=== PATIENT | female | born 1930 | race Caucasian/White ===

== ENCOUNTER 2017-03-28 02:03 | Inpatient (IN) ==
--- NOTE | 2017-03-28 05:01 | Emergency Department Note ---
START Narrative - START START: I examined this patient and my medical decision-making was reviewed with the Resident Physician. I agree with the documented findings, disposition and treatment plan as described except to the extent set forth below. 86-year-old female presented for a mechanical fall. She was complaining of left knee and leg pain. X-rays were negative. However, she had some abnormalities on her pelvis x-ray. I have added on a CT pelvis to evaluate for pubic symphysis type fracture. She is resting comfortably in the room. If negative, patient will likely be able to be discharged home if she can ambulate.
[2017-03-28] MEDS ORDERED: Ondansetron 4 MG/2 ML VIAL IVP ONE (05:48)
[2017-03-28] MEDS ORDERED: *HR* Morphine 2 MG/ML SYRINGE IVP ONE (05:48)
--- NOTE | 2017-03-28 05:52 | Emergency Department Note ---
Disposition Clinical Impression: Pubic ramus fracture Qualifiers: Encounter type: initial encounter Fracture type: closed Laterality: right Qualified Code(s): S32.591A - Other specified fracture of right pubis, initial encounter for closed fracture Fall Qualifiers: Encounter type: initial encounter Qualified Code(s): W19.XXXA - Unspecified fall, initial encounter Disposition: Admitted As Inpatient Condition: Good Referrals: Jessica Brewer MD [Primary Care Provider] - General Adult HPI - General Chief complaint: ED Extremity Injury, Lower Stated complaint: fall. no loc Time Seen by Provider: 03/28/17 02:36 Source: patient Limitations: no limitations Nursing Notes Reviewed: Yes Vital Signs Reviewed: Yes - History of Present Illness HPI Narrative: 86-year-old female who had a mechanical fall just prior to arrival. She reports she was unable to ambulate after the fall. She reports that her feet got tangled up and she fell onto her right side. She denies hitting her head. She denies any head or neck pain. She denies losing consciousness. She states that she initially just fell onto her right knee and then onto the right hip. Her complaints are pain of the right hip and right knee and right ankle. She does take Xarelto for atrial fibrillation. Her other medical problems include diabetes, hypertension. Radiation: non-radiation Pain Severity: moderate Pain Scale: 7 Improves with: nothing Worsens with: movement Associated symptoms: Reports: denies other symptoms Treatments Prior to Arrival: none - Related Data Home Medications Medication Instructions Recorded Confirmed Alendronate Sodium 70 mg PO QWEEK MDD wednesday10/22/15 10/22/15 Amlodipine Besylate 5 mg PO DAILY 10/22/15 10/22/15 Aspirin [Lo-Dose Aspirin EC] 81 mg PO DAILY 10/22/15 10/22/15 Calcitriol [Rocaltrol] 0.25 mg PO DAILY 10/22/15 10/22/15 Ergocalciferol (VITAMIN D2) 50,000 unit PO QWEEK MDD wednesday10/22/15 10/22/15 [Vitamin D2 (50,000 UNIT)] Furosemide [Lasix] 20 mg PO BID PRN 10/22/15 10/22/15 Losartan Potassium [Cozaar] 50 mg PO DAILY 10/22/15 10/22/15 Metoprolol [Lopressor] 50 mg PO BID 10/22/15 10/22/15 Montelukast [Singulair] 10 mg PO DAILY 10/22/15 10/22/15 Pantoprazole Sodium [Protonix] 40 mg PO DAILY 10/22/15 10/22/15 Potassium Chloride [K-Tab ER] 10 meq PO BID 10/22/15 10/22/15 Rivaroxaban [Xarelto] 20 mg PO DAILY 10/22/15 10/22/15 Simvastatin [Zocor] 10 mg PO DAILY 10/22/15 10/22/15 Sucralfate [Carafate] 1 gm PO BID 10/22/15 10/22/15 Allergies Allergy/AdvReac Type Severity Reaction Status Date / Time Penicillins Allergy Hives Verified 06/28/15 14:53 loratadine AdvReac See Verified 06/28/15 14:53 Comments sulfamethoxazole AdvReac See Verified 06/28/15 14:53 [From Bactrim] Comments trimethoprim [From Bactrim] AdvReac See Verified 06/28/15 14:53 Comments All systems ED: reviewed and negative except as stated. Constitutional: Denies: fever Cardiovascular: Denies: chest pain Respiratory: Denies: cough Gastrointestinal: Denies: abdominal pain Integumentary: Denies: rash Past Medical History - Past Medical History Medical history: Reports: arthritis, atrial fibrillation, CVA, diabetes, fibromyalgia, GERD, hyperlipidemia, hypertension, osteoporosis, renal disease, TIA, other Surgical history: Reports: hysterectomy, ALISON/BSO Psychiatric history: Reports: no psych history, other - Social History Smoking Status: Never smoker Smokeless Tobacco Status: No Alcohol use: Reports: none Drug use: Reports: none Physical Exam - General Limitations: no limitations General appearance: alert, in no apparent distress - Head Head exam: atraumatic - Eye Eye exam: Present: normal appearance, PERRL - ENT ENT exam: normal exam, normal oropharynx - Neck Neck exam: Present: normal inspection - Chest Chest inspection: Present: normal inspection - Respiratory Respiratory exam: Present: normal lung sounds bilaterally. Absent: respiratory distress - Cardiovascular Cardiovascular exam: Present: regular rate, normal rhythm - Abdominal Exam Abdominal exam: Present: soft, Non-Tender - Extremities Exam Extremities exam: Present: other (No bruising noted. Tenderness to palpation of the right knee and right hip. N/V intact distally.) - Neurological Exam Neurological exam: Present: alert, oriented X3 - Psychiatric Psychiatric exam: Present: normal affect, normal mood - Skin Skin exam: Present: warm, dry Course Course Narrative: CT shows a right-sided rami fracture. I will admit her for pain control and for orthopedic consultation. I have spoken with Dr. Fernandez who has agreed to see the patient. Vital Signs Temperature 97.8 F 03/28/17 02:05 Pulse Rate 57 03/28/17 02:05 Respiratory Rate 16 03/28/17 02:05 Blood Pressure 100/64 03/28/17 02:05 O2 Sat by Pulse Oximetry 84 03/28/17 02:05 Temperature 97.8 F 03/28/17 02:05 Pulse Rate 95 03/28/17 03:50 Respiratory Rate 18 03/28/17 03:50 Blood Pressure 102/54 03/28/17 03:50 O2 Sat by Pulse Oximetry 95 03/28/17 03:50 Oxygen Delivery Oxygen Delivery Nasal Cannula Medical Decision Making - Radiology Data Radiology results reviewed: Yes I reviewed the patient's radiology results.
[2017-03-28] MEDS ORDERED: 0.9 % Sodium Chloride 1,000 ML IVC ONE (06:00)
[2017-03-28] MEDS ORDERED: 0.9 % Sodium Chloride 1,000 ML ONE (06:01)
[2017-03-28 06:41] LABS: Basophils # 0.1 K/mcL (0.0-0.2); Basophils % 0.3 %; Eosinophils % 0.1 %; Hematocrit 36.4 % (35.3-44.9); Hemoglobin 11.8 g/dL (11.5-15.4); Immature Granulocytes % 0.7 % (0-4); Immature Platelets 5.8 % (1.1-6.1); Lymphocytes % 5.4 %; Mean Corpuscular HGB Conc 32.4 g/dL (31.6-35.5); Mean Corpuscular Hemoglobin 33.6 pg (28.0-33.3); Mean Corpuscular Volume 103.7 fL (83.0-100.0); Mean Platelet Volume 10.5 fL (9.4-12.4); Monocytes % 5.2 %; Neutrophils # 16.4 K/mcL (1.6-8.9); Platelet Count 207 K/mcL (140-400); Red Blood Count 3.51 M/mcL (3.82-4.97); Segmented Neutrophils % 88.3 %
[2017-03-28 06:46] LABS: INR 2.6; Prothrombin Time 28.3 Seconds (9.4-12.1)
[2017-03-28 06:53] LABS: BUN/Creatinine Ratio 21 (6-26); Blood Urea Nitrogen 22 mg/dL (7-20); Calcium 8.9 mg/dL (8.6-10.8); Carbon Dioxide 29 mEq/L (19-29); Chloride 105 mEq/L (98-109); Glucose 159 mg/dL (70-99); Osmolality,Calculated 299 (280-300); Sodium 141 mEq/L (136-145); eGFR For African Americans > 60 (> 60); eGFR For Non-African Americans 50 (> 60)
[2017-03-28] MEDS ORDERED: Ondansetron 4 MG/2 ML VIAL IVP PRN (08:45)
[2017-03-28] MEDS ORDERED: *HR* Morphine 2 MG/ML SYRINGE IVP PRN (08:45)
--- NOTE | 2017-03-28 08:50 | Internal Med History&Physical ---
Date of Encounter: 03/30/17 Time of Encounter: 08:48 Assessment and Plan (1) Paroxysmal atrial fibrillation Current visit: Yes Status: Acute Old anticoagulation for now given traumatic bleeding noted in the pelvis. (2) Pubic ramus fracture Current visit: Yes Status: Acute pelvic fracture after mechanical fall. I am concerned because of the bleeding behind symphysis pubis. She is on aspirin and xarelto. She is a poor historian will place a Lemus catheter to see if there is any suggestion of injury of bladder. Await for orthopedic input. Hold aspirins and xarelto for now. Follow H and H Qualifiers: Encounter type: initial encounter Fracture type: closed Laterality: right Qualified Code(s): S32.591A - Other specified fracture of right pubis, initial encounter for closed fracture (3) Leucocytosis Current visit: Yes Status: Acute No obvious source of infection. Maybe reactive. Check urine analysis and chest x-ray. Hydrate Qualifiers: Qualified Code(s): D72.829 - Elevated white blood cell count, unspecified (4) Hypertension Current visit: Yes Status: Acute Currently blood pressures towards low normal side. Will hold blood pressure medications except for beta blockers. Qualifiers: Qualified Code(s): I10 - Essential (primary) hypertension Internal Medicine - H&P: HPI Chief complaint: fall History of present illness: Ms. Dang is a 86 year old female with multiple medical problems presents to the emergency room today after mechanical fall. Reportedly patient was getting up to get a glass of water tripped and fell on her right side. She does not think she lost consciousness. She sustained a right pelvic fracture . She has been complaining of abdominal pain. There was notable blood behind the symphysis pubis on CT scan. She is on aspirin and Xarelto for paroxysmal atrial fibrillation. She denies any recent febrile illness. She denies any focal weakness. Past Med Surg Social Fam HX - Past Medical History Medical history: arthritis, atrial fibrillation, CVA, diabetes, fibromyalgia, GERD, hyperlipidemia, hypertension, osteoporosis, renal disease, TIA, other Psychiatric history: no psych history, other - Past Surgical History Surgical History: hysterectomy, ALISON/BSO - Social History Smoking Status: Never smoker Smokeless Tobacco Status: No Alcohol use: none Drug use: none - Family History Daughter Family Member Ethnicity: Non- Living Status: Still Living Hx Family Cardiac Disorders: Yes (Father had aortic anyurism) Hx Family Respiratory Disorders: No Hx Family Cancer: No Hx Family GI Disorders: No Hx Family Endocrine Disorder: No Hx Family Neuromuscular Disorders: No Hx Family Neurologic Disorders: No Hx Family HEENT Disorders: No Hx Family Autoimmune Disorders: No Internal Medicine - H&P: Meds Alendronate Sodium 70 mg PO QWEEK MDD wednesday10/22/15 [History] Amlodipine Besylate 5 mg PO DAILY 10/22/15 [History] Aspirin [Lo-Dose Aspirin EC] 81 mg PO DAILY 10/22/15 [History] Calcitriol [Rocaltrol] 0.25 mg PO DAILY 10/22/15 [History] Ergocalciferol (VITAMIN D2) [Vitamin D2 (50,000 UNIT)] 50,000 unit PO QWEEK MDD wednesday10/22/15 [History] Furosemide [Lasix] 20 mg PO BID PRN 10/22/15 [History] Losartan Potassium [Cozaar] 50 mg PO DAILY 10/22/15 [History] Metoprolol [Lopressor] 50 mg PO BID 10/22/15 [History] Montelukast [Singulair] 10 mg PO DAILY 10/22/15 [History] Potassium Chloride [K-Tab ER] 20 meq PO BID 10/22/15 [History] Rivaroxaban [Xarelto] 20 mg PO DAILY 10/22/15 [History] Simvastatin [Zocor] 10 mg PO DAILY 10/22/15 [History] 3 Allergy/AdvReac Type Severity Reaction Status Date / Time Penicillins Allergy Hives Verified 06/28/15 14:53 loratadine AdvReac See Verified 06/28/15 14:53 Comments sulfamethoxazole AdvReac See Verified 06/28/15 14:53 [From Bactrim] Comments trimethoprim [From Bactrim] AdvReac See Verified 06/28/15 14:53 Comments All Systems PM: A 10-system review of systems was performed and is negative for pertinent findings except as documented above in the HPI. Review of systems: 10 point review of systems is negative except for HPI - Constitutional Vitals: Temp Pulse Resp BP Pulse Ox 98.1 F 100 16 107/64 99 03/28/17 07:16 03/28/17 07:16 03/28/17 07:16 03/28/17 07:16 03/28/17 07:16 Exam: Gen.: patient is alert oriented times 3 cardiac: normal S1 S2 no additional sounds or murmurs chest: no active wheezing or bronchial breathing abdomen soft nontender nondistended normal bowel sounds lower extremity no swelling. Decreased ROM with movement of right leg Neuro: no new focal deficits Internal Med - H&P Results - Labs CBC & Chem 7: 03/30/17 04:17 03/30/17 04:17 Labs: Short CBC 03/28/17 Range/Units 06:32 WBC 18.6 H (4.3-11.1) K/mcL Hgb 11.8 (11.5-15.4) g/dL Hct 36.4 (35.3-44.9) % Plt Count 207 (140-400) K/mcL Neutrophils # 16.4 H (1.6-8.9) K/mcL BMP 03/28/17 06:32 Sodium 141 Potassium 4.0 Chloride 105 Carbon Dioxide 29 BUN 22 H Creatinine 1.04 Glucose 159 H Calcium 8.9
[2017-03-28] MEDS: 0.9 % Sodium Chloride 1,000 ML IVC SCH ×2 (09:39→19:05)
--- NOTE | 2017-03-28 11:59 | Orthopedic Consult Note ---
Date of Encounter: 03/28/17 Time of Encounter: 11:57 Assessment and Plan (1) Pubic ramus fracture Current Visit: Yes Status: Acute The diagnosis and treatment were discussed with Maddy. We will treat her fracture nonoperatively. She may be weight-bear as tolerated with a walker. No plans for orthopedic surgical intervention. Will sign off, follow-up in 3 weeks. Qualifiers: Encounter type: initial encounter Fracture type: closed Laterality: right Qualified Code(s): S32.591A - Other specified fracture of right pubis, initial encounter for closed fracture History of Present Illness HPI: Ms. Dang is a 86 year old female who fell onto her right side last night. She was brought to the emergency department and x-rays and a CAT scan showed a right sided pubic rami fractures. No other fractures were noted on imaging. She was admitted for intractable pain following a fall. She denies any chest pain shortness of breath or blacking out prior to the fall. Currently complains of groin pain on the right side. Has been up and putting weight on the right side with assistance. Past Med Surg Social Fam HX - Past Medical History Medical history: arthritis, atrial fibrillation, CVA, diabetes, fibromyalgia, GERD, hyperlipidemia, hypertension, osteoporosis, renal disease, TIA, other Psychiatric history: no psych history, other - Past Surgical History Surgical History: hysterectomy, ALISON/BSO - Social History Smoking Status: Never smoker Smokeless Tobacco Status: No Alcohol use: none Drug use: none - Family History Daughter Family Member Ethnicity: Non- Living Status: Still Living Hx Family Cardiac Disorders: Yes (Father had aortic anyurism) Hx Family Respiratory Disorders: No Hx Family Cancer: No Hx Family GI Disorders: No Hx Family Endocrine Disorder: No Hx Family Neuromuscular Disorders: No Hx Family Neurologic Disorders: No Hx Family HEENT Disorders: No Hx Family Autoimmune Disorders: No Medications and Allergies Alendronate Sodium 70 mg PO QWEEK MDD wednesday10/22/15 [History] Amlodipine Besylate 5 mg PO DAILY 10/22/15 [History] Aspirin [Lo-Dose Aspirin EC] 81 mg PO DAILY 10/22/15 [History] Calcitriol [Rocaltrol] 0.25 mg PO DAILY 10/22/15 [History] Ergocalciferol (VITAMIN D2) [Vitamin D2 (50,000 UNIT)] 50,000 unit PO QWEEK MDD wednesday10/22/15 [History] Furosemide [Lasix] 20 mg PO BID PRN 10/22/15 [History] Losartan Potassium [Cozaar] 50 mg PO DAILY 10/22/15 [History] Metoprolol [Lopressor] 50 mg PO BID 10/22/15 [History] Montelukast [Singulair] 10 mg PO DAILY 10/22/15 [History] Pantoprazole Sodium [Protonix] 40 mg PO DAILY 10/22/15 [History] Potassium Chloride [K-Tab ER] 10 meq PO BID 10/22/15 [History] Rivaroxaban [Xarelto] 20 mg PO DAILY 10/22/15 [History] Simvastatin [Zocor] 10 mg PO DAILY 10/22/15 [History] Sucralfate [Carafate] 1 gm PO BID 10/22/15 [History] 3 Allergy/AdvReac Type Severity Reaction Status Date / Time Penicillins Allergy Hives Verified 06/28/15 14:53 loratadine AdvReac See Verified 06/28/15 14:53 Comments sulfamethoxazole AdvReac See Verified 06/28/15 14:53 [From Bactrim] Comments trimethoprim [From Bactrim] AdvReac See Verified 06/28/15 14:53 Comments All Systems Reviewed: A 10-system review of systems was performed and is negative for pertinent findings except as documented above in the HPI. Physical Exam - Constitutional Vitals: Temp Pulse Resp BP Pulse Ox 98.1 F 100 16 107/64 99 03/28/17 07:16 03/28/17 07:16 03/28/17 07:16 03/28/17 07:16 03/28/17 07:16 Exam: Consult Exam: Constitutional -Vitals reviewed -The patient is well developed and well nourished. -Mood is pleasant. -The patient is well groomed. Psychiatric -The patient is fully alert and oriented x 3. Respiratory: -Respiratory effort normal Abdomen: -Soft abdomen -Non tender -Non distended: Left upper extremity: -No deformities. The overlying skin is intact. No obvious signs of acute trauma. -No tenderness to palpation throughout. -No significant pain with passive motion of the shoulder, elbow, wrist, and fingers within the limits of the bed. -Able to make an "OK" sign, cross the index and long fingers, and extend the thumb. -Sensation grossly intact to light touch throughout the median, radial, and ulnar distributions. -Radial pulse is present; Fingers have good capillary refill. Right upper extremity: -No deformities. The overlying skin is intact. No obvious signs of acute trauma. -No tenderness to palpation throughout. -No significant pain with passive motion of the shoulder, elbow, wrist, and fingers within the limits of the bed. -Able to make an "OK" sign, cross the index and long fingers, and extend the thumb. -Sensation grossly intact to light touch throughout the median, radial, and ulnar distributions. -Radial pulse is present; Fingers have good capillary refill. Left lower extremity: -No deformities. The overlying skin is intact. No obvious signs of acute trauma. -No tenderness to palpation throughout. -No pain with passive motion of the hip, knee, ankle, and toes within the limits of the bed. -No pain with axial loading of the thigh. -Able to dorsiflex and plantarflex the ankle and toes. -Sensation is grossly intact to light touch throughout the sural, saphenous, superficial peroneal, and deep peroneal distributions. -Toes have good capillary refill. Right lower extremity: -No deformities. The overlying skin is intact. No obvious signs of acute trauma. -Groin pain with IR at the hip. -No pain with passive motion of the knee, ankle, and toes within the limits of the bed. -Able to dorsiflex and plantarflex the ankle and toes. -Sensation is grossly intact to light touch throughout the sural, saphenous, superficial peroneal, and deep peroneal distributions. -Toes have good capillary refill. Results - Labs Result Diagrams: 03/28/17 06:32 03/28/17 06:32 Labs: Abnormal lab results WBC 18.6 K/mcL (4.3-11.1) H 03/28/17 06:32 RBC 3.51 M/mcL (3.82-4.97) L 03/28/17 06:32 MCV 103.7 fL (83.0-100.0) H 03/28/17 06:32 MCH 33.6 pg (28.0-33.3) H 03/28/17 06:32 Neutrophils # 16.4 K/mcL (1.6-8.9) H 03/28/17 06:32 PT 28.3 Seconds (9.4-12.1) H 03/28/17 06:32 BUN 22 mg/dL (7-20) H 03/28/17 06:32 Est GFR (Non-Af Amer) 50 (> 60) L 03/28/17 06:32 Glucose 159 mg/dL (70-99) H 03/28/17 06:32 H & H 03/28/17 Range/Units 06:32 Hgb 11.8 (11.5-15.4) g/dL Hct 36.4 (35.3-44.9) % All other labs normal. - Diagnostic results Hip CT: report reviewed, image reviewed (Right-sided pubic rami fractures with hematoma formation) Pelvic AP x-ray: image reviewed Consult Discharge Plan - Plan Referrals: Jessica Brewer MD [Primary Care Provider] -
[2017-03-28] MEDS: Sucralfate 1 GM TABLET PO SCH (17:11)
[2017-03-28 20:17] LABS: Hematocrit 28.9 % (35.3-44.9)
[2017-03-28 20:18] LABS: Hemoglobin 9.4 g/dL (11.5-15.4)
[2017-03-29 05:03] LABS: Basophils # 0.1 K/mcL (0.0-0.2); Basophils % 0.7 %; Eosinophils # 0.5 K/mcL (0.0-0.6); Eosinophils % 4.4 %; Immature Granulocytes % 0.3 % (0-4); Lymphocytes # 1.4 K/mcL (0.6-4.6); Lymphocytes % 12.1 %; Mean Corpuscular Hemoglobin 33.5 pg (28.0-33.3); Mean Corpuscular Volume 107.8 fL (83.0-100.0); Monocytes # 0.7 K/mcL (0.0-1.3); Neutrophils # 8.9 K/mcL (1.6-8.9); Platelet Count 157 K/mcL (140-400); Red Blood Count 2.69 M/mcL (3.82-4.97); Red Cell Distribution Width 13.3 % (11.5-14.5); Segmented Neutrophils % 76.5 %
[2017-03-29 05:14] LABS: BUN/Creatinine Ratio 19 (6-26); Blood Urea Nitrogen 20 mg/dL (7-20); Calcium 8.4 mg/dL (8.6-10.8); Carbon Dioxide 32 mEq/L (19-29); Chloride 109 mEq/L (98-109); Glucose 120 mg/dL (70-99); Magnesium 1.8 mg/dL (1.6-2.6); Osmolality,Calculated 296 (280-300); Potassium 4.3 mEq/L (3.5-4.5); Sodium 141 mEq/L (136-145); eGFR For African Americans > 60 (> 60); eGFR For Non-African Americans 50 (> 60)
[2017-03-29] MEDS: 0.9 % Sodium Chloride 1,000 ML IVC SCH ×2 (05:25→17:33)
[2017-03-29] MEDS: Sucralfate 1 GM TABLET PO SCH ×2 (08:05→17:35)
--- NOTE | 2017-03-29 09:00 | Internal Med Progress Note ---
Date of Encounter: 03/29/17 Time of Encounter: 08:55 - Assessment and plan (1) Chest pain Current Visit: Yes Status: Acute Assessment and plan: Patient had an episode of right-sided chest pain that resolved within 5 minutes. EKG obtained demonstrates atrial fibrillation with appropriate rate access, no ST elevations or depressions. Patient does have abdominal bloating, rhonchi to right lower lung base and increased oxygen demand. Possible pneumonia versus COPD exacerbation. This may also be diaphragmatic irritation from her abdominal bloating. Considered PE but this is less likely as patient' s current INR is 2.6 and on chronic Xarelto therapy,a d-dimer it will be elevated secondary to fall and pubic ramus fracture. - Noncardiac chest pain. - Chest x-ray - Continue breathing treatments - Address constipation - Troponin Qualifiers: Qualified Code(s): R07.9 - Chest pain, unspecified (2) Hypoxia Current Visit: Yes Status: Acute Assessment and plan: Patient has a history of COPD but not on continuous home oxygen at home. Currently requiring 3 L nasal cannula oxygen to maintain oxygen saturation greater than 88%. She was initially admitted with leukocytosis WBC 18.3 which is decreased to 11 today. Likely secondary to stress reaction. At this time cannot rule out pneumonia or other causes of her hypoxia and increased oxygen demand such as COPD exacerbation. - Patient had some right-sided chest discomfort described as sharp, resolving within 5 minutes, increased oxygen demand, resolving leukocytosis, rhonchi in right lower lung base, increased sputum production yellow in color. Plan: - Chest x-ray - Wean oxygen as tolerated - Continue breathing treatments as discussed below. - Bedside spirometer. (3) Pubic ramus fracture Current Visit: Yes Status: Acute Assessment and plan: 86-year-old female who fell in her kitchen on 03/27/2017 resulting in a right sided pubic ramus fracture. She has been seen by orthopedic surgery and the plan is for nonoperative management. Reviewing outpatient records demonstrates the patient has a history of unsteady gait and high risk for falls. He was recently recommended that she obtain a different walker as she was wobbly on her feet and after discussion with the patient she was not using any assistive devices when she fell in her kitchen. Plan: - Physical therapy - long term placement for rehabilitation and care short-term. Qualifiers: Encounter type: initial encounter Fracture type: closed Laterality: right Qualified Code(s): S32.591A - Other specified fracture of right pubis, initial encounter for closed fracture (4) Chronic atrial fibrillation Current Visit: No Status: Chronic Assessment and plan: Patient is a history of chronic atrial fibrillation, currently in atrial fibrillation rate controlled. Patient takes Xarelto daily current INR is 2.6. Denies any history of warfarin therapy. - EKG obtained 03/29/2017 demonstrates atrial fibrillation without any ST elevations or depressions. Plan: - Continue cardiac monitoring and patient - Hemoglobin stable resume Xarelto (5) Chronic kidney disease (CKD) stage G3a/A1, moderately decreased glomerular filtration rate (GFR) between 45-59 mL/min/1.73 square meter and albuminuria creatinine ratio less than 30 mg/g Current Visit: No Status: Chronic Assessment and plan: Patient has a history of stage III chronic kidney disease. She sees Dr. Villafana in the outpatient setting. Renal function stable. Plan: - Continue to monitor and inpatient stay. - Avoid nephrotoxic medications and renally dose antibiotics as necessary. (6) Fall Current Visit: Yes Status: Acute Assessment and plan: High risk for falls. Patient fell resulting in pubic ramus fracture. Of note she also has a history of left shoulder arthritis after seeing orthopedics recommended for total left shoulder replacement. Plan: - Physical therapy - If patient ambulates she will require a walker/assistive devices. Qualifiers: Encounter type: initial encounter Qualified Code(s): W19.XXXA - Unspecified fall, initial encounter (7) Leucocytosis Current Visit: Yes Status: Acute Assessment and plan: History of leukocytosis upon admission she had a WBC 18.6. Currently 11.7, suspected stress reaction. - This morning she is hypoxic on 3 L nasal cannula oxygen. Patient has a history of COPD and uses her oxygen sparingly as needed at home. She also complains of yellow sputum production and has rhonchi in the right lower lobe. Plan: - Chest x-ray - Continue to monitor. Leukocytosis improving I will rule out infectious etiology. Qualifiers: Qualified Code(s): D72.829 - Elevated white blood cell count, unspecified (8) Hypertension Current Visit: Yes Status: Acute Assessment and plan: Patient has a history of hypertension for which she takes amlodipine and Cozaar. Current blood pressure appropriate, will continue to hold antihypertensive medications. 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 - Patient was taking montelukast 10 mg daily and albuterol nebulizer every 4 hours as needed. Plan: - Continue albuterol nebulizer inpatient when necessary - DuoNeb treatments when necessary - Bedside spirometry as patient is immobile. - Patient currently requiring 3 L nasal cannula oxygen only maintaining oxygen saturation between 88-90%, desaturates below 88% on nasal cannula oxygen is removed. Qualifiers: Qualified Code(s): J44.9 - Chronic obstructive pulmonary disease, unspecified (10) Macrocytic anemia Current Visit: Yes Status: Acute Assessment and plan: Hemoglobin 9.0, MCV 107. Patient currently not on any immunosuppressants or immune-modulators. Plan: - B12 and folic acid labs ordered - Continue to monitor - Subjective Interval history: 86-year-old female seen and evaluated patient bedside this morning. She is alert oriented interactive in no acute distress. She said she had some right- sided chest discomfort for which they obtained an EKG but has now resolved. She states that the chest pain was low on her right side of her chest and radiated to her back and lasted roughly 5 minutes and then resolved. She is a little short of breath and coughing up yellowish phlegm. She states that her pubic pain was worse yesterday and is now controlled with her current regimen. She said that she was in too much pain to participate with physical therapy today. She denies any other acute concerns. She denies any headaches, change in vision, sore throat, nausea vomiting diarrhea but has been slightly constipated. She denies any palpitations or chest pressure. - Constitutional Vitals: Temp Pulse Resp BP Pulse Ox 98.3 F 90 18 127/72 93 03/29/17 08:38 03/29/17 08:38 03/29/17 08:38 03/29/17 08:38 03/29/17 08:38 General appearance: Present: A&O X 3, pleasant, no acute distress - Head Head exam: Present: atraumatic, normocephalic - Eye Eye exam: Present: normal appearance - Neck Neck exam general surgery: Present: supple, trachea midline. Absent: lymphadenopathy - Respiratory Additional comments: Rhonchi appreciated right lower lung base, bronchial congestion, clear to auscultation and bilateral apices and left sided lung sounds. - Cardiovascular Cardiovascular exam: Present: irregular rhythm Additional comments: Bilateral Radial and bilateral posterior tibial pulses 2+ - GI/Abdominal GI/Abdominal exam: Present: distended, normal bowel sounds Additional comments: Tympanic to percussion. - Extremities Exam Extremities exam: Present: normal inspection - Psychiatric Psychiatric exam: Present: normal affect, normal mood Internal Medicine: Result - Labs CBC & Chem 7: 03/29/17 04:30 03/29/17 04:30 Labs: Short CBC 03/28/17 03/29/17 Range/Units 19:58 04:30 WBC 11.7 H (4.3-11.1) K/mcL Hgb 9.4 L D 9.0 L (11.5-15.4) g/dL Hct 28.9 L 29.0 L (35.3-44.9) % Plt Count 157 (140-400) K/mcL Neutrophils # 8.9 (1.6-8.9) K/mcL BMP 03/29/17 04:30 Sodium 141 Potassium 4.3 Chloride 109 Carbon Dioxide 32 H BUN 20 Creatinine 1.04 Glucose 120 H Calcium 8.4 L - ABG Interpretation ABG results: PT/INR, D-dimer PT 28.3 Seconds (9.4-12.1) H 03/28/17 06:32 - VTE Documentation of Mechanical Device: Intermittent pneumatic compression device Consult Discharge Plan - Plan Referrals: Jessica Brewer MD [Primary Care Provider] -
[2017-03-29 11:21] LABS: INR 1.4; Prothrombin Time 15.2 Seconds (9.4-12.1)
[2017-03-29 11:26] LABS: Albumin 2.4 g/dL (3.5-5.0); Albumin/Globulin Ratio 0.6 (1.1-2.2); Bilirubin,Direct 0.3 mg/dL (0.0-0.5); Bilirubin,Indirect 0.4 mg/dL (0.0-1.2); Bilirubin,Total 0.7 mg/dL (0.2-1.2); Globulin 3.9 g/dL (2.4-3.5); Total Protein 6.3 g/dL (6.0-8.3)
[2017-03-29] MEDS: Ipratropium/Albuterol Neb 3 ML IH SCH ×4 (12:09→23:32)
[2017-03-29 12:31] LABS: ABG Base Excess 1 mEq/L (-2 to 3); ABG HCO3 26 mEq/L (21-27); ABG Oxygen Saturation 94 % (95-98); ABG PCO2 42 mmHg (35-45); ABG PO2 72 mmHg (85-104); ABG TCO2 27 mEq/L (20-26)
[2017-03-29] MEDS: cefTRIAXone 1,000 MG in Water for inj. (sterile) 10 ML IVPB SCH (12:49)
[2017-03-29] MEDS: Azithromycin 500 MG in D5% in Water 250 ML IVPB SCH (12:49)
[2017-03-29 14:07] LABS: Folate 16.8 ng/mL (7.0-31.4)
[2017-03-29] MEDS: traMADol 50 MG TABLET PO PRN (17:35)
[2017-03-29] MEDS: Sennosides/Docusate Sodium TABLET PO SCH (20:55)
[2017-03-29 23:31] LABS: Bilirubin,Urine Negative (Negative); Blood,Urine Small (Negative); Clarity,Urine Clear (Clear); Color,Urine Yellow (Yellow); Glucose,Urine (UA) 100 mg/dL (Normal); Ketones,Urine Negative (Negative); Leukocyte Esterase,Urine Negative (Negative); Nitrite,Urine Negative (Negative); Protein,Urine Trace mg/dL (Neg-Trace); Specific Gravity,Urine 1.019 (1.010-1.025); Urobilinogen,Urine Normal (Normal)
[2017-03-29 23:33] LABS: Bacteria,Urine None Seen per hpf (None-Few); Hyaline Casts,Urine None Seen per lpf (None-Few); Squamous Epithelial Cell,Urine Many per lpf (None-Few); WBC,Urine 0-3 per hpf (0-3)
[2017-03-30] MEDS: 0.9 % Sodium Chloride 1,000 ML IVC SCH (03:33)
[2017-03-30] MEDS: Ipratropium/Albuterol Neb 3 ML IH SCH ×6 (03:43→23:52)
[2017-03-30 05:11] LABS: Basophils # 0.1 K/mcL (0.0-0.2); Basophils % 0.5 %; Eosinophils # 0.4 K/mcL (0.0-0.6); Eosinophils % 3.1 %; Hematocrit 24.7 % (35.3-44.9); Hemoglobin 7.8 g/dL (11.5-15.4); Immature Granulocytes % 0.7 % (0-4); Lymphocytes # 1.4 K/mcL (0.6-4.6); Lymphocytes % 12.2 %; Mean Corpuscular HGB Conc 31.6 g/dL (31.6-35.5); Mean Corpuscular Hemoglobin 33.6 pg (28.0-33.3); Mean Corpuscular Volume 106.5 fL (83.0-100.0); Mean Platelet Volume 11.4 fL (9.4-12.4); Monocytes # 0.8 K/mcL (0.0-1.3); Monocytes % 7.3 %; Neutrophils # 8.7 K/mcL (1.6-8.9); Nucleated Red Blood Cells 0.2 /100 WBC (0); Platelet Count 138 K/mcL (140-400); Red Blood Count 2.32 M/mcL (3.82-4.97); Red Cell Distribution Width 13.2 % (11.5-14.5); Segmented Neutrophils % 76.2 %
[2017-03-30 05:21] LABS: Alanine Aminotransferase 18 Units/L (0-55); Albumin 2.1 g/dL (3.5-5.0); Albumin/Globulin Ratio 0.6 (1.1-2.2); Alkaline Phosphatase 66 Units/L (38-126); Aspartate Amino Transferase 17 Units/L (5-34); BUN/Creatinine Ratio 18 (6-26); Bilirubin,Total 0.7 mg/dL (0.2-1.2); Blood Urea Nitrogen 13 mg/dL (7-20); Carbon Dioxide 25 mEq/L (19-29); Chloride 109 mEq/L (98-109); Globulin 3.5 g/dL (2.4-3.5); Glucose 128 mg/dL (70-99); Osmolality,Calculated 290 (280-300); Sodium 139 mEq/L (136-145); Total Protein 5.6 g/dL (6.0-8.3); eGFR For African Americans > 60 (> 60); eGFR For Non-African Americans > 60 (> 60)
[2017-03-30 06:50] LABS: INR 1.4; Prothrombin Time 15.2 Seconds (9.4-12.1)
[2017-03-30] MEDS: Sucralfate 1 GM TABLET PO SCH ×2 (07:43→15:38)
[2017-03-30] MEDS: Sennosides/Docusate Sodium TABLET PO SCH ×2 (07:43→20:18)
--- NOTE | 2017-03-30 10:05 | Internal Med Progress Note ---
<Marc Patel - Last Filed: 03/30/17 10:03> Date of Encounter: 03/30/17 Time of Encounter: 10:03 - Assessment and plan (1) Hypoxia Current Visit: Yes Status: Acute Assessment and plan: Patient has a history of COPD but not on continuous home oxygen at home. Currently requiring 2.5 L nasal cannula oxygen to maintain oxygen saturation greater than 88%. She was initially admitted with leukocytosis WBC 18.3 which is currently at 11. Likely secondary to stress reaction. Chest x-ray demonstrated basilar atelectasis versus infiltration. Given her clinical picture will treat for pneumonia. - Patient had some right-sided chest discomfort described as sharp, resolving within 5 minutes, increased oxygen demand, resolving leukocytosis, rhonchi in right lower lung base, increased sputum production yellow in color, chest x-ray concerning for atelectasis versus infiltrate in right lower basilar region. 03/30: Patient improved today, lungs are clear to auscultation, sputum production reduced. Plan: Continue ceftriaxone and azithromycin - Continue scheduled breathing treatments - Continue to wean oxygen as tolerated. - Patient to continue using bedside spirometer (2) Pubic ramus fracture Current Visit: Yes Status: Acute Assessment and plan: 86-year-old female who fell in her kitchen on 03/27/2017 resulting in a right sided pubic ramus fracture. She has been seen by orthopedic surgery and the plan is for nonoperative management. Reviewing outpatient records demonstrates the patient has a history of unsteady gait and high risk for falls. He was recently recommended that she obtain a different walker as she was wobbly on her feet and after discussion with the patient she was not using any assistive devices when she fell in her kitchen. 03/30: Stable today, patient ambulating to chair. Plan: - Physical therapy - group home placement for rehabilitation and care short-term. Qualifiers: Encounter type: initial encounter Fracture type: closed Laterality: right Qualified Code(s): S32.591A - Other specified fracture of right pubis, initial encounter for closed fracture (3) Chronic atrial fibrillation Current Visit: No Status: Chronic Assessment and plan: Patient is a history of chronic atrial fibrillation, currently in atrial fibrillation rate controlled. Patient takes Xarelto daily current INR is 2.6. Denies any history of warfarin therapy. - EKG obtained 03/29/2017 demonstrates atrial fibrillation without any ST elevations or depressions. Plan: - Continue cardiac monitoring and patient - Continue Lopressor 25 mg by mouth twice a day - Hemoglobin stable resume Xarelto (4) Chronic kidney disease (CKD) stage G3a/A1, moderately decreased glomerular filtration rate (GFR) between 45-59 mL/min/1.73 square meter and albuminuria creatinine ratio less than 30 mg/g Current Visit: No Status: Chronic Assessment and plan: Patient has a history of stage III chronic kidney disease. She sees Dr. Villafana in the outpatient setting. Renal function stable. Plan: - Continue to monitor and inpatient stay. - Avoid nephrotoxic medications and renally dose antibiotics as necessary. (5) Fall Current Visit: Yes Status: Acute Assessment and plan: High risk for falls. Patient fell resulting in pubic ramus fracture. Of note she also has a history of left shoulder arthritis after seeing orthopedics recommended for total left shoulder replacement. Plan: - Physical therapy - If patient ambulates she will require a walker/assistive devices. Qualifiers: Encounter type: initial encounter Qualified Code(s): W19.XXXA - Unspecified fall, initial encounter (6) Leucocytosis Current Visit: Yes Status: Acute Assessment and plan: History of leukocytosis upon admission she had a WBC 18.6. Currently 11.7, suspected stress reaction. - Continues to require nasal cannula oxygen at 2.5 L today. Patient has a history of COPD and uses her oxygen sparingly as needed at home. She also complains of yellow sputum production and has rhonchi in the right lower lobe. Plan: - Chest x-ray - Continue to monitor. Leukocytosis improving , likely secondary to right lower lobe infiltrate. Qualifiers: Qualified Code(s): D72.829 - Elevated white blood cell count, unspecified (7) Hypertension Current Visit: Yes Status: Acute Assessment and plan: Patient has a history of hypertension for which she takes amlodipine and Cozaar. Current blood pressure appropriate, will continue to hold antihypertensive medications. 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 - Patient was taking montelukast 10 mg daily and albuterol nebulizer every 4 hours as needed. Plan: - Continue albuterol nebulizer inpatient when necessary - DuoNeb treatments when necessary - Bedside spirometry as patient is immobile. - Patient currently requiring 3 L nasal cannula oxygen only maintaining oxygen saturation between 88-90%, desaturates below 88% on nasal cannula oxygen is removed. Qualifiers: Qualified Code(s): J44.9 - Chronic obstructive pulmonary disease, unspecified (9) Macrocytic anemia Current Visit: Yes Status: Acute Assessment and plan: Hemoglobin 9.0, MCV 107. Patient currently not on any immunosuppressants or immune-modulators. B12 451, folate 16.8 Plan: - Continue to monitor, patient may benefit from outpatient hematology follow-up. (10) Acute blood loss anemia Current Visit: Yes Status: Acute Assessment and plan: Patient admitted with right pubic ramus fracture, on anticoagulation and hemoglobin of 11. After IV fluids and blood loss secondary to fracture hemoglobin this morning is 7.8. - 2 units PRBC was ordered overnights, held this morning as patient is asymptomatic - We will recheck hemoglobin and hematocrit at 1400 today and if necessary will transfuse. - Anticoagulation was held at the time of admission. (11) DVT prophylaxis Current Visit: Yes Status: Acute Assessment and plan: SCDs - Subjective Interval history: 86-year-old female seen and evaluated patient bedside this morning. She is sitting up in the chair, She is alert oriented interactive in no acute distress. She denies any chest pain, chest pressure, shortness of breath, she says that her sputum production has decreased significantly compared to yesterday. Denies any fevers chills or sweating. No new concerns at this time. I discussed PRBC transfusion with the patient and we agreed on holding any transfusion at this time and rechecking a hemoglobin and hematocrit this afternoon at 1400 and if it is lower than we will transfuse a unit of PRBCs. - Constitutional Vitals: Temp Pulse Resp BP Pulse Ox 98.2 F 100 16 113/71 95 03/30/17 06:27 03/30/17 06:27 03/30/17 07:58 03/30/17 06:27 03/30/17 07:58 General appearance: Present: A&O X 3, pleasant, no acute distress - Head Head exam: Present: atraumatic, normocephalic - Eye Eye exam: Present: PERRL, conjuntiva pink, sclera anicteric Pupils: Present: PERRL - Neck Neck exam general surgery: Present: supple, trachea midline. Absent: lymphadenopathy - Respiratory Respiratory exam: Present: CTAB. Absent: accessory muscle use, rales, rhonchi, wheezes - Cardiovascular Cardiovascular exam: Present: irregular rhythm. Absent: diastolic murmur, gallop, rubs, systolic murmur Additional comments: Rate controlled - GI/Abdominal GI/Abdominal exam: Present: normal bowel sounds, soft, no peritoneal signs. Absent: distended, tenderness - Extremities Exam Extremities exam: Present: warm, radial pulses palpable and symmetrical. Absent : calf tenderness, cyanotic, pedal edema - Neurological Exam Neurological exam: Present: alert, oriented X3, no focal deficits. Absent: pronater drift, facial droop, speech deficit - Skin Skin exam: Present: dry, intact Internal Medicine: Result - Labs CBC & Chem 7: 03/30/17 04:17 03/30/17 04:17 Labs: Short CBC 03/30/17 Range/Units 04:17 WBC 11.4 H (4.3-11.1) K/mcL Hgb 7.8 L (11.5-15.4) g/dL Hct 24.7 L (35.3-44.9) % Plt Count 138 L (140-400) K/mcL Neutrophils # 8.7 (1.6-8.9) K/mcL BMP 03/30/17 04:17 Sodium 139 Potassium 4.0 Chloride 109 Carbon Dioxide 25 BUN 13 Creatinine 0.74 Glucose 128 H Calcium 8.0 L Liver Function 03/29/17 03/30/17 Range/Units 11:05 04:17 Total Bilirubin 0.7 0.7 (0.2-1.2) mg/dL Direct Bilirubin 0.3 (0.0-0.5) mg/dL AST 18 17 (5-34) Units/L ALT 20 18 (0-55) Units/L Alkaline Phosphatase 70 66 (38-126) Units/L Albumin 2.4 L 2.1 L (3.5-5.0) g/dL Urine 03/29/17 Range/Units 23:20 Urine Color Yellow (Yellow) Urine Clarity Clear (Clear) Urine pH 6.0 (5.0-8.0) pH Units Ur Specific Cameron 1.019 (1.010-1.025) Urine Protein Trace (Neg-Trace) mg/dL Urine Glucose (UA) 100 H (Normal) mg/dL - ABG Interpretation ABG results: ABG ABG pH 7.40 pH Units (7.32-7.45) 03/29/17 12:28 ABG pCO2 42 mmHg (35-45) 03/29/17 12:28 ABG pO2 72 mmHg (85-104) L 03/29/17 12:28 ABG O2 Saturation 94 % (95-98) L 03/29/17 12:28 PT/INR, D-dimer PT 15.2 Seconds (9.4-12.1) H 03/30/17 04:17 - VTE Documentation of Mechanical Device: Intermittent pneumatic compression device Consult Discharge Plan - Plan Referrals: Jessica Brewer MD [Primary Care Provider] - <Hector Martines - Last Filed: 03/30/17 19:19> Date of Encounter: 03/30/17 - Assessment and plan (1) Acute respiratory failure with hypoxia Current Visit: Yes Status: Acute (2) Pubic ramus fracture Current Visit: Yes Status: Acute Qualifiers: Encounter type: initial encounter Fracture type: closed Laterality: right Qualified Code(s): S32.591A - Other specified fracture of right pubis, initial encounter for closed fracture (3) COPD (chronic obstructive pulmonary disease) Current Visit: Yes Status: Acute Qualifiers: 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 (4) Paroxysmal atrial fibrillation Current Visit: Yes Status: Chronic (5) Anemia associated with acute blood loss Current Visit: No Status: Acute (6) Hypertension Current Visit: No Status: Chronic Qualifiers: Hypertension type: essential hypertension Qualified Code(s): I10 - Essential (primary) hypertension (7) Chronic kidney disease (CKD) stage G3a/A1, moderately decreased glomerular filtration rate (GFR) between 45-59 mL/min/1.73 square meter and albuminuria creatinine ratio less than 30 mg/g Current Visit: No Status: Chronic (8) Pneumonia Current Visit: No Status: Acute Qualifiers: Pneumonia type: due to unspecified organism Laterality: unspecified laterality Lung location: unspecified part of lung Qualified Code(s): J18.9 - Pneumonia, unspecified organism - Constitutional Vitals: Temp Pulse Resp BP Pulse Ox 97.8 F 120 16 145/78 93 03/30/17 15:12 03/30/17 15:12 03/30/17 16:30 03/30/17 15:12 03/30/17 16:30 Internal Medicine: Result - Labs CBC & Chem 7: 03/30/17 13:28 03/30/17 04:17 Labs: Short CBC 03/30/17 03/30/17 Range/Units 04:17 13:28 WBC 11.4 H (4.3-11.1) K/mcL Hgb 7.8 L 8.7 L (11.5-15.4) g/dL Hct 24.7 L 27.4 L (35.3-44.9) % Plt Count 138 L (140-400) K/mcL Neutrophils # 8.7 (1.6-8.9) K/mcL BMP 03/30/17 04:17 Sodium 139 Potassium 4.0 Chloride 109 Carbon Dioxide 25 BUN 13 Creatinine 0.74 Glucose 128 H Calcium 8.0 L Liver Function 03/30/17 Range/Units 04:17 Total Bilirubin 0.7 (0.2-1.2) mg/dL AST 17 (5-34) Units/L ALT 18 (0-55) Units/L Alkaline Phosphatase 66 (38-126) Units/L Albumin 2.1 L (3.5-5.0) g/dL Urine 03/29/17 Range/Units 23:20 Urine Color Yellow (Yellow) Urine Clarity Clear (Clear) Urine pH 6.0 (5.0-8.0) pH Units Ur Specific Cameron 1.019 (1.010-1.025) Urine Protein Trace (Neg-Trace) mg/dL Urine Glucose (UA) 100 H (Normal) mg/dL - ABG Interpretation ABG results: ABG ABG pH 7.40 pH Units (7.32-7.45) 03/29/17 12:28 ABG pCO2 42 mmHg (35-45) 03/29/17 12:28 ABG pO2 72 mmHg (85-104) L 03/29/17 12:28 ABG O2 Saturation 94 % (95-98) L 03/29/17 12:28 PT/INR, D-dimer PT 15.2 Seconds (9.4-12.1) H 03/30/17 04:17 - Attending Attestation I examined this patient and my medical decision-making was reviewed with the Resident Physician on 03/30/17. I agree with the documented findings, disposition and treatment plan as described except to the extent set forth below. Ms Dang is currently admitted for acute hypoxic resp failure with presumed pneumonia. She also has pubic ramus fracture. She remains moderate to high risk due to potential for worsening respiratory status. Ms Dang is very tired. She did a lot with therapy. Pain is controlled. No fever or chills. Breathing somewhat improved. Exam Alert. Comfortable Heart reg No wheeze Abd soft Mucus membranes dry I/P 1. Hypoxic resp failure 2. PNA 3. pubic ramus fracture Further diagnoses and plan as above.
[2017-03-30] MEDS: cefTRIAXone 1,000 MG in Water for inj. (sterile) 10 ML IVPB SCH (11:31)
[2017-03-30] MEDS: Azithromycin 500 MG in D5% in Water 250 ML IVPB SCH (11:32)
[2017-03-30 13:35] LABS: Hematocrit 27.4 % (35.3-44.9); Hemoglobin 8.7 g/dL (11.5-15.4)
[2017-03-30] MEDS: traMADol 50 MG TABLET PO PRN (17:52)
[2017-03-31] MEDS: traMADol 50 MG TABLET PO PRN (00:20)
[2017-03-31] MEDS: Ipratropium/Albuterol Neb 3 ML IH SCH ×5 (04:39→20:39)
[2017-03-31 05:52] LABS: Basophils # 0.1 K/mcL (0.0-0.2); Basophils % 0.7 %; Eosinophils # 0.4 K/mcL (0.0-0.6); Eosinophils % 3.6 %; Hematocrit 25.8 % (35.3-44.9); Hemoglobin 8.4 g/dL (11.5-15.4); Immature Granulocytes % 0.3 % (0-4); Lymphocytes # 1.3 K/mcL (0.6-4.6); Lymphocytes % 10.8 %; Mean Corpuscular HGB Conc 32.6 g/dL (31.6-35.5); Mean Corpuscular Hemoglobin 33.7 pg (28.0-33.3); Mean Corpuscular Volume 103.6 fL (83.0-100.0); Mean Platelet Volume 11.1 fL (9.4-12.4); Monocytes % 8.2 %; Neutrophils # 9.1 K/mcL (1.6-8.9); Platelet Count 143 K/mcL (140-400); Red Blood Count 2.49 M/mcL (3.82-4.97); Red Cell Distribution Width 13.2 % (11.5-14.5); Segmented Neutrophils % 76.4 %
[2017-03-31 06:05] LABS: Magnesium 1.8 mg/dL (1.6-2.6); Phosphorous 1.8 mg/dL (2.3-4.7)
[2017-03-31 06:06] LABS: Alanine Aminotransferase 17 Units/L (0-55); Albumin 2.2 g/dL (3.5-5.0); Albumin/Globulin Ratio 0.6 (1.1-2.2); Alkaline Phosphatase 78 Units/L (38-126); Aspartate Amino Transferase 18 Units/L (5-34); BUN/Creatinine Ratio 12 (6-26); Bilirubin,Total 0.9 mg/dL (0.2-1.2); Blood Urea Nitrogen 8 mg/dL (7-20); Calcium 8.4 mg/dL (8.6-10.8); Carbon Dioxide 25 mEq/L (19-29); Chloride 104 mEq/L (98-109); Glucose 121 mg/dL (70-99); Osmolality,Calculated 284 (280-300); Potassium 3.8 mEq/L (3.5-4.5); Sodium 137 mEq/L (136-145); Total Protein 6.2 g/dL (6.0-8.3); eGFR For African Americans > 60 (> 60); eGFR For Non-African Americans > 60 (> 60)
[2017-03-31] MEDS: Sennosides/Docusate Sodium TABLET PO SCH ×2 (07:27→21:07)
[2017-03-31] MEDS: Sucralfate 1 GM TABLET PO SCH ×2 (07:27→17:40)
--- NOTE | 2017-03-31 10:00 | Internal Med Progress Note ---
Date of Encounter: 03/31/17 Time of Encounter: 09:59 - Assessment and plan (1) Hypoxia Current Visit: Yes Status: Acute Assessment and plan: Patient has a history of COPD but not on continuous home oxygen at home. Currently requiring 2.5 L nasal cannula oxygen to maintain oxygen saturation greater than 88%. She was initially admitted with leukocytosis WBC 18.3 which is currently at 11. Likely secondary to stress reaction. Chest x-ray demonstrated basilar atelectasis versus infiltration. Given her clinical picture will treat for pneumonia. - Patient had some right-sided chest discomfort described as sharp, resolving within 5 minutes, increased oxygen demand, resolving leukocytosis, rhonchi in right lower lung base, increased sputum production yellow in color, chest x-ray concerning for atelectasis versus infiltrate in right lower basilar region. 03/30: Patient improved today, lungs are clear to auscultation, sputum production reduced. Plan: Continue ceftriaxone and azithromycin - Continue scheduled breathing treatments - Continue to wean oxygen as tolerated. - Patient to continue using bedside spirometer (2) Pubic ramus fracture Current Visit: Yes Status: Acute Assessment and plan: 86-year-old female who fell in her kitchen on 03/27/2017 resulting in a right sided pubic ramus fracture. She has been seen by orthopedic surgery and the plan is for nonoperative management. Reviewing outpatient records demonstrates the patient has a history of unsteady gait and high risk for falls. He was recently recommended that she obtain a different walker as she was wobbly on her feet and after discussion with the patient she was not using any assistive devices when she fell in her kitchen. 03/30: Stable today, patient ambulating to chair. Plan: - Physical therapy - [facility] placement for rehabilitation and care short-term. Qualifiers: Encounter type: initial encounter Fracture type: closed Laterality: right Qualified Code(s): S32.591A - Other specified fracture of right pubis, initial encounter for closed fracture (3) Chronic atrial fibrillation Current Visit: No Status: Chronic Assessment and plan: Patient is a history of chronic atrial fibrillation, currently in atrial fibrillation rate controlled. Patient takes Xarelto daily current INR is 2.6. Denies any history of warfarin therapy. - EKG obtained 03/29/2017 demonstrates atrial fibrillation without any ST elevations or depressions. Plan: - Continue cardiac monitoring and patient - Continue Lopressor 25 mg by mouth twice a day - Hemoglobin stable resume Xarelto (4) Chronic kidney disease (CKD) stage G3a/A1, moderately decreased glomerular filtration rate (GFR) between 45-59 mL/min/1.73 square meter and albuminuria creatinine ratio less than 30 mg/g Current Visit: No Status: Chronic Assessment and plan: Patient has a history of stage III chronic kidney disease. She sees Dr. Villafana in the outpatient setting. Renal function stable. Plan: - Continue to monitor and inpatient stay. - Avoid nephrotoxic medications and renally dose antibiotics as necessary. (5) Fall Current Visit: Yes Status: Acute Assessment and plan: High risk for falls. Patient fell resulting in pubic ramus fracture. Of note she also has a history of left shoulder arthritis after seeing orthopedics recommended for total left shoulder replacement. Plan: - Physical therapy - If patient ambulates she will require a walker/assistive devices. Qualifiers: Encounter type: initial encounter Qualified Code(s): W19.XXXA - Unspecified fall, initial encounter (6) Leucocytosis Current Visit: Yes Status: Acute Assessment and plan: History of leukocytosis upon admission she had a WBC 18.6. Currently 11.7, suspected stress reaction. - Continues to require nasal cannula oxygen at 2.5 L today. Patient has a history of COPD and uses her oxygen sparingly as needed at home. She also complains of yellow sputum production and has rhonchi in the right lower lobe. Plan: - Chest x-ray - Continue to monitor. Leukocytosis improving , likely secondary to right lower lobe infiltrate. Qualifiers: Qualified Code(s): D72.829 - Elevated white blood cell count, unspecified (7) Hypertension Current Visit: Yes Status: Acute Assessment and plan: Patient has a history of hypertension for which she takes amlodipine and Cozaar. Current blood pressure appropriate, will continue to hold antihypertensive medications. 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 - Patient was taking montelukast 10 mg daily and albuterol nebulizer every 4 hours as needed. Plan: - Continue albuterol nebulizer inpatient when necessary - DuoNeb treatments when necessary - Bedside spirometry as patient is immobile. - Patient currently requiring 3 L nasal cannula oxygen only maintaining oxygen saturation between 88-90%, desaturates below 88% on nasal cannula oxygen is removed. 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 Patient currently not on any immunosuppressants or immune-modulators. B12 451, folate 16.8 Plan: - Continue to monitor, patient may benefit from outpatient hematology follow-up. (10) Acute blood loss anemia Current Visit: Yes Status: Acute Assessment and plan: Patient admitted with right pubic ramus fracture, on anticoagulation and hemoglobin of 11. After IV fluids and blood loss secondary to fracture hemoglobin this morning is 7.8. - 2 units PRBC was ordered overnights, held this morning as patient is asymptomatic - We will recheck hemoglobin and hematocrit at 1400 today and if necessary will transfuse. - Anticoagulation was held at the time of admission. (11) DVT prophylaxis Current Visit: Yes Status: Acute Assessment and plan: SCDs - Subjective Interval history: 86-year-old female seen and evaluated patient bedside this morning. She is sitting up in the chair, She is alert oriented interactive in no acute distress. She denies any chest pain, chest pressure, shortness of breath, she says that her sputum production has decreased significantly compared to yesterday. Denies any fevers chills or sweating. No new concerns at this time. I discussed PRBC transfusion with the patient and we agreed on holding any transfusion at this time and rechecking a hemoglobin and hematocrit this afternoon at 1400 and if it is lower than we will transfuse a unit of PRBCs. - Constitutional Vitals: Temp Pulse Resp BP Pulse Ox 98.7 F 115 18 129/74 93 03/31/17 06:26 03/31/17 06:26 03/31/17 08:01 03/31/17 06:26 03/31/17 08:01 General appearance: Present: A&O X 3, pleasant, no acute distress Internal Medicine: Result - Labs CBC & Chem 7: 03/31/17 04:47 03/31/17 04:47 Labs: Short CBC 03/30/17 03/31/17 Range/Units 13:28 04:47 WBC 11.9 H (4.3-11.1) K/mcL Hgb 8.7 L 8.4 L (11.5-15.4) g/dL Hct 27.4 L 25.8 L (35.3-44.9) % Plt Count 143 (140-400) K/mcL Neutrophils # 9.1 H (1.6-8.9) K/mcL BMP 03/31/17 04:47 Sodium 137 Potassium 3.8 Chloride 104 Carbon Dioxide 25 BUN 8 Creatinine 0.67 Glucose 121 H Calcium 8.4 L Liver Function 03/31/17 Range/Units 04:47 Total Bilirubin 0.9 (0.2-1.2) mg/dL AST 18 (5-34) Units/L ALT 17 (0-55) Units/L Alkaline Phosphatase 78 (38-126) Units/L Albumin 2.2 L (3.5-5.0) g/dL - ABG Interpretation ABG results: ABG ABG pH 7.40 pH Units (7.32-7.45) 03/29/17 12:28 ABG pCO2 42 mmHg (35-45) 03/29/17 12:28 ABG pO2 72 mmHg (85-104) L 03/29/17 12:28 ABG O2 Saturation 94 % (95-98) L 03/29/17 12:28 PT/INR, D-dimer PT 15.2 Seconds (9.4-12.1) H 03/30/17 04:17 - VTE Documentation of Mechanical Device: Intermittent pneumatic compression device Consult Discharge Plan - Plan Referrals: Jessica Brewer MD [Primary Care Provider] -
--- NOTE | 2017-03-31 10:44 | Discharge Summary ---
<AddyrosisarbjitMarc Dario - Last Filed: 03/31/17 11:34> Date of Encounter: 03/31/17 Time of Encounter: 08:35 - Discharge Diagnosis (1) Hypoxia Priority: Primary Status: Acute (2) Pubic ramus fracture Priority: Primary Status: Acute Qualifiers: Encounter type: initial encounter Fracture type: closed Laterality: right Qualified Code(s): S32.591A - Other specified fracture of right pubis, initial encounter for closed fracture (3) Chronic atrial fibrillation Priority: Secondary Status: Chronic (4) Chronic kidney disease (CKD) stage G3a/A1, moderately decreased glomerular filtration rate (GFR) between 45-59 mL/min/1.73 square meter and albuminuria creatinine ratio less than 30 mg/g Priority: Secondary Status: Chronic (5) Fall Priority: Secondary Status: Acute Qualifiers: Encounter type: initial encounter Qualified Code(s): W19.XXXA - Unspecified fall, initial encounter (6) Leucocytosis Priority: Secondary Status: Acute Qualifiers: Qualified Code(s): D72.829 - Elevated white blood cell count, unspecified (7) Hypertension Priority: Secondary Status: Acute Qualifiers: Qualified Code(s): I10 - Essential (primary) hypertension (8) COPD (chronic obstructive pulmonary disease) Priority: Secondary Status: Acute Qualifiers: 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 (9) Macrocytic anemia Priority: Secondary Status: Acute (10) Acute blood loss anemia Priority: Secondary Status: Acute Comments: stable hgb (11) DVT prophylaxis Priority: Secondary Status: Acute - Discharge Medications Prescriptions: Azithromycin [Zithromax] 250 mg PO Q24H 3 Days #3 tablet Cefdinir [Omnicef] 300 mg PO DAILY 3 Days #3 capsule Tramadol HCl [Ultram] 50 mg PO TID PRN #15 tab PRN Reason: Pain Home Medications: Alendronate Sodium 70 mg PO QWEEK MDD wednesday10/22/15 [History] Aspirin [Lo-Dose Aspirin EC] 81 mg PO DAILY 10/22/15 [History] Calcitriol [Rocaltrol] 0.25 mg PO DAILY 10/22/15 [History] Ergocalciferol (VITAMIN D2) [Vitamin D2 (50,000 UNIT)] 50,000 unit PO QWEEK MDD wednesday10/22/15 [History] Furosemide [Lasix] 20 mg PO BID PRN 10/22/15 [History] Metoprolol [Lopressor] 50 mg PO BID 10/22/15 [History] Montelukast [Singulair] 10 mg PO DAILY 10/22/15 [History] Potassium Chloride [K-Tab ER] 20 meq PO BID 10/22/15 [History] Rivaroxaban [Xarelto] 20 mg PO DAILY 10/22/15 [History] Simvastatin [Zocor] 10 mg PO DAILY 10/22/15 [History] Azithromycin [Zithromax] 250 mg PO Q24H 3 Days #3 tablet 03/31/17 [Rx] Cefdinir [Omnicef] 300 mg PO DAILY 3 Days #3 capsule 03/31/17 [Rx] Tramadol HCl [Ultram] 50 mg PO TID PRN #15 tab 03/31/17 [Rx] Allergies/Adverse Reactions: 3 Allergy/AdvReac Type Severity Reaction Status Date / Time Penicillins Allergy Hives Verified 06/28/15 14:53 loratadine AdvReac See Verified 06/28/15 14:53 Comments sulfamethoxazole AdvReac See Verified 06/28/15 14:53 [From Bactrim] Comments trimethoprim [From Bactrim] AdvReac See Verified 06/28/15 14:53 Comments Procedures/tests Complete & Pending: Procedures Performed prior 72 hours Category Date Time Status EKG [ECG 12 lead ECG] [ECG] Stat Y 03/29/17 08:29 Completed Date of admission: 03/28/17 19:56 Primary care physician: Jessica Brewer, Discharging clinician: Marc Patel Anticipated date of discharge: 03/31/17 - Patient Status Disposition: Transfer SNF Condition: Good Functional capacity at discharge: uses cane/walker Overall status at discharge: patient is progressing back to baseline - Discharge Instructions Follow Up With: Jessica Brewer MD [Primary Care Provider] - Additional Instructions: follow up with PCP in the next 3-5 days work with physical therapy Take medications as prescribed Complete antibiotics. - Diet and Activity Activity: increase activity as tolerated Diet: advance to your usual diet Interval History: Ms. Dang is a 86 year old female with multiple medical problems including arthritis, atrial fibrillation, CVA, diabetes, fibromyalgia, GERD, hyperlipidemia, hypertension, osteoporosis, renal disease, TIA admitted on 03/28 secondary to a mechanical fall resulting in right pelvic ramus fracture. At the time of admission her anticoagulation was held. She was also found to be hypoxic with an elevated WBC, requiring 4 L nasal cannula oxygen. She has a history of COPD and denies using chronic oxygen therapy at home but does use as needed O2. Chest x-ray was performed with concerning right lower lobe consolidation for which she was started on azithromycin and ceftriaxone. She was seen and evaluated by orthopedic surgery and nonoperative management was determined for her therapy. Physical therapy was consult to see the patient during her inpatient stay. During her inpatient stay her pain was controlled, she clinically improved daily with decrease in oxygen demand improvement in clinical examination and she worked with physical therapy. Her hemoglobin was monitored with a slight decrease in hemoglobin secondary to right pelvic fracture, hemoglobin stabilized. She was seen and evaluated on 03/31/2017, she maintained oxygen saturations greater than 90% on room air throughout the morning. She was deemed stable for discharge for SNF for continued inpatient rehabilitation. It was discussed with the patient that she needs to use her walker at home as she is a high fall risk. She was discharged with a prescription for azithromycin, Omnicef for 3 more days to complete her CAP coverage. She was also sent with tramadol for pain coverage. Hospital course: Ms. Dang is a 86 year old female - Time Spent with Patient Total time spent providing and/or coordinating discharge services: - Constitutional Vitals: Temp Pulse Resp BP Pulse Ox 98.7 F 115 18 129/74 97 03/31/17 06:26 03/31/17 06:26 03/31/17 08:01 03/31/17 06:26 03/31/17 10:16 General appearance: Present: A&O X 3, pleasant, no acute distress - Head Head exam: Present: atraumatic, normocephalic - Eye Eye exam: Present: PERRL, conjuntiva pink, sclera anicteric Pupils: Present: PERRL - Neck Neck exam general surgery: Present: supple, trachea midline. Absent: lymphadenopathy - Respiratory Respiratory exam: Present: CTAB. Absent: accessory muscle use, rales, rhonchi, wheezes - Cardiovascular Cardiovascular exam: Present: irregular rhythm. Absent: diastolic murmur, gallop, rubs, systolic murmur - GI/Abdominal GI/Abdominal exam: Present: normal bowel sounds, soft, no peritoneal signs. Absent: distended, tenderness - Extremities Exam Extremities exam: Present: warm, radial pulses palpable and symmetrical. Absent : calf tenderness, cyanotic, pedal edema - Neurological Exam Neurological exam: Present: alert, oriented X3, no focal deficits. Absent: pronater drift, facial droop, speech deficit - Skin Skin exam: Present: dry, intact - VTE Documentation of Mechanical Device: Intermittent pneumatic compression device <Hector Martines - Last Filed: 03/31/17 17:03> Date of Encounter: 03/31/17 - Discharge Diagnosis (1) Acute respiratory failure with hypoxia Priority: Primary Status: Acute Comments: Pt required 6 liters at time of admit and was 84% on room air today prior to discharge. D/C on oxygen with plans to wean in future if able. (2) COPD (chronic obstructive pulmonary disease) Status: Acute Qualifiers: 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 (3) Pneumonia Priority: Secondary Status: Acute Qualifiers: Pneumonia type: due to unspecified organism Laterality: unspecified laterality Lung location: unspecified part of lung Qualified Code(s): J18.9 - Pneumonia, unspecified organism (4) Pubic ramus fracture Status: Acute Qualifiers: Encounter type: subsequent encounter Fracture type: closed Laterality: right Fracture healing: with routine healing Qualified Code(s): S32.591D - Other specified fracture of right pubis, subsequent encounter for fracture with routine healing (5) Paroxysmal atrial fibrillation Priority: Secondary Status: Chronic (6) Anemia associated with acute blood loss Priority: Secondary Status: Acute (7) Hypertension Priority: Secondary Status: Chronic Qualifiers: Hypertension type: essential hypertension Qualified Code(s): I10 - Essential (primary) hypertension (8) Chronic kidney disease (CKD) stage G3a/A1, moderately decreased glomerular filtration rate (GFR) between 45-59 mL/min/1.73 square meter and albuminuria creatinine ratio less than 30 mg/g Status: Chronic Procedures/tests Complete & Pending: Procedures Performed prior 72 hours Category Date Time Status EKG [ECG 12 lead ECG] [ECG] Stat Y 03/29/17 08:29 Completed Date of admission: 03/28/17 19:56 Primary care physician: Jessica Brewer, Hospital course: Ms. Dang is a 86 year old female - Time Spent with Patient Total time spent providing and/or coordinating discharge services: 38min - Constitutional Vitals: Temp Pulse Resp BP Pulse Ox 98.6 F 109 16 106/69 94 03/31/17 14:18 03/31/17 14:18 03/31/17 15:57 03/31/17 14:18 03/31/17 15:57 - Attending Attestation I examined this patient and my medical decision-making was reviewed with the Resident Physician on 03/31/17. I agree with the documented findings, disposition and treatment plan as described except to the extent set forth below. Ms. Nur has been admitted for hypoxia and pubic rami fracture. She is now afebrile with stable vitals. She has been evaluated and recommended SNF. She is ready for discharge today. Exam Alert. Comfortable Mucus membranes dry Heart reg - not tachy now Lungs with scattered faint rhonchi. No edema Plan D/C to SNF today.
--- NOTE | 2017-03-31 10:51 | Physician Discharge Referral ---
ExtendedCare Referral Info Transfer To: SNF Provider in Charge after Transfer: PCP Institutional Level of Care: Skilled - Diagnosis (1) Hypoxia Priority: Primary Status: Acute (2) Pubic ramus fracture Priority: Primary Status: Acute (3) Chronic atrial fibrillation Priority: Secondary Status: Chronic (4) Chronic kidney disease (CKD) stage G3a/A1, moderately decreased glomerular filtration rate (GFR) between 45-59 mL/min/1.73 square meter and albuminuria creatinine ratio less than 30 mg/g Priority: Secondary Status: Chronic (5) Fall Priority: Secondary Status: Acute (6) Leucocytosis Priority: Secondary Status: Acute (7) Hypertension Priority: Secondary Status: Acute (8) COPD (chronic obstructive pulmonary disease) Priority: Secondary Status: Acute (9) Macrocytic anemia Priority: Secondary Status: Acute (10) Acute blood loss anemia Priority: Secondary Status: Acute (11) DVT prophylaxis Priority: Secondary Status: Acute (12) CAP (community acquired pneumonia) Priority: Primary Status: Acute - Transfer Medications Home Medications: Alendronate Sodium 70 mg PO QWEEK MDD wednesday10/22/15 [History] Amlodipine Besylate 5 mg PO DAILY 10/22/15 [History] Aspirin [Lo-Dose Aspirin EC] 81 mg PO DAILY 10/22/15 [History] Calcitriol [Rocaltrol] 0.25 mg PO DAILY 10/22/15 [History] Ergocalciferol (VITAMIN D2) [Vitamin D2 (50,000 UNIT)] 50,000 unit PO QWEEK MDD wednesday10/22/15 [History] Furosemide [Lasix] 20 mg PO BID PRN 10/22/15 [History] Losartan Potassium [Cozaar] 50 mg PO DAILY 10/22/15 [History] Metoprolol [Lopressor] 50 mg PO BID 10/22/15 [History] Montelukast [Singulair] 10 mg PO DAILY 10/22/15 [History] Potassium Chloride [K-Tab ER] 20 meq PO BID 10/22/15 [History] Rivaroxaban [Xarelto] 20 mg PO DAILY 10/22/15 [History] Simvastatin [Zocor] 10 mg PO DAILY 10/22/15 [History] Allergies/Adverse Reactions: 3 Allergy/AdvReac Type Severity Reaction Status Date / Time Penicillins Allergy Hives Verified 06/28/15 14:53 loratadine AdvReac See Verified 06/28/15 14:53 Comments sulfamethoxazole AdvReac See Verified 06/28/15 14:53 [From Bactrim] Comments trimethoprim [From Bactrim] AdvReac See Verified 06/28/15 14:53 Comments - Respiratory Orders Oxygen / L per min (PRN) Smoking Cessation: Smoking cessation has been advised. For more information, call the [place] Tobacco Quit Line at 6-086-XKHY-NOW. - Lab Orders Lab Orders: CBC (3 days post discharge.) - Ancillary Orders May use pressure relief devices daily prn, May consult with Dentist, Dry Clipper Tender, Counterintelligence Specialist PRN - Advance Directives Living Will: No Power of Paperboard Box Maker: No Code Status: Full Code - Mobility Orders Ambulate - Rehabiliation Orders Rehab Orders: ROM Exercises, Evaluation for Physical Therapy, Evaluation for Occupational Therapy - Treatments Skin tear care topically daily PRN per policy, Fleet enema rectally every other day PRN cleansing purposes - Diet Orders No Added Salt (MARY) CERTIFICATION: I certify that the transfer of the above named patient to an Extended Care Facility is necessary for the continuing treatment of the diagnosis listed. The above information is true and accurate reflection of patient's current condition. Confidential - Redisclosure prohibited without a patient's written consent.
[2017-03-31] MEDS: cefTRIAXone 1,000 MG in Water for inj. (sterile) 10 ML IVPB SCH (15:12)
[2017-03-31] MEDS: Azithromycin 500 MG in D5% in Water 250 ML IVPB SCH (15:13)
[2017-03-31] MEDS ORDERED: *HR* Rivaroxaban 10 MG TABLET PO SCH (17:00)
--- NOTE | 2017-03-31 18:20 | Electrocardiograph Report ---
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
--- NOTE | 2017-04-01 01:03 | Event Note ---
Date of Encounter: 04/01/17 Time of Encounter: 01:02 RN called for uncontrolled heart rate. EKG obtained which showed A. fib RVR heart rate 130s. Patient is asymptomatic. She has chronic A. fib and currently on rate control and on anticoagulation with Xarelto. Cardizem IV 10 mg will be given. Reassess in the morning.
[2017-04-01] MEDS: Ipratropium/Albuterol Neb 3 ML IH SCH ×4 (04:19→11:26)
[2017-04-01] MEDS: Sucralfate 1 GM TABLET PO SCH (08:31)
[2017-04-01] MEDS: Sennosides/Docusate Sodium TABLET PO SCH (08:32)
[2017-04-01 12:04] VITALS: BP 128/74
[2017-04-01] MEDS ORDERED: *HR* Rivaroxaban 15 MG TABLET PO SCH (17:00)
--- NOTE | 2017-04-01 18:56 | Electrocardiograph Report ---
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
--- NOTE | 2017-04-01 19:26 | Internal Med Progress Note ---
Date of Encounter: 04/01/17 Time of Encounter: 11:00 - Assessment and plan (1) Acute respiratory failure with hypoxia Status: Acute Assessment and plan: Continue to wean off oxygen. OK to go to SNF. (2) Paroxysmal atrial fibrillation Status: Chronic Assessment and plan: Had tachycardia last night. Meds adjusted this AM. OK for discharge. (3) COPD (chronic obstructive pulmonary disease) Status: Acute Assessment and plan: Continue current medications. Qualifiers: 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 (4) Pneumonia Status: Acute Assessment and plan: Will complete abx. Qualifiers: Pneumonia type: due to unspecified organism Laterality: unspecified laterality Lung location: unspecified part of lung Qualified Code(s): J18.9 - Pneumonia, unspecified organism (5) Pubic ramus fracture Status: Acute Assessment and plan: Rehab planned. Qualifiers: Encounter type: subsequent encounter Fracture type: closed Laterality: right Fracture healing: with routine healing Qualified Code(s): S32.591D - Other specified fracture of right pubis, subsequent encounter for fracture with routine healing (6) Anemia associated with acute blood loss Status: Acute Assessment and plan: H/H stable. (7) Chronic kidney disease (CKD) stage G3a/A1, moderately decreased glomerular filtration rate (GFR) between 45-59 mL/min/1.73 square meter and albuminuria creatinine ratio less than 30 mg/g Status: Chronic - Subjective Interval history: Ms Dang has been admitted for pubic rami fracture and dyspnea. She was to be discharged yesterday but had rapid a fib. She remains moderate risk due to potential for worsening cardiac status. Ms Dang feels OK. Meds adjusted today and heart rate somewhat better. She feels ready to go to SNF. No CP or SOB. No fever or chills. - Constitutional Vitals: Temp Pulse Resp BP Pulse Ox 98.4 F 104 14 128/74 97 04/01/17 10:14 04/01/17 10:14 04/01/17 11:26 04/01/17 10:14 04/01/17 11:26 General appearance: Present: A&O X 3, pleasant, no acute distress - Head Head exam: Present: normocephalic - Eye Eye exam: Present: EOMI, conjuntiva pink - ENT ENT exam: Present: mucous membranes moist - Respiratory Respiratory exam: Present: decreased breath sounds, CTAB - Cardiovascular Cardiovascular exam: Present: irregular rhythm, tachycardia - GI/Abdominal GI/Abdominal exam: Present: soft. Absent: tenderness - Extremities Exam Extremities exam: Present: warm. Absent: tenderness - Neurological Exam Neurological exam: Present: alert, oriented X3 - Skin Skin exam: Present: warm. Absent: rash Internal Medicine: Result - Labs CBC & Chem 7: 03/31/17 04:47 03/31/17 04:47 - ABG Interpretation ABG results: ABG ABG pH 7.40 pH Units (7.32-7.45) 03/29/17 12:28 ABG pCO2 42 mmHg (35-45) 03/29/17 12:28 ABG pO2 72 mmHg (85-104) L 03/29/17 12:28 ABG O2 Saturation 94 % (95-98) L 03/29/17 12:28 PT/INR, D-dimer PT 15.2 Seconds (9.4-12.1) H 03/30/17 04:17 - VTE Documentation of Mechanical Device: Intermittent pneumatic compression device Consult Discharge Plan - Plan Additional Instructions: follow up with PCP in the next 3-5 days work with physical therapy Take medications as prescribed Complete antibiotics. Referrals: Jessica Brewer MD [Primary Care Provider] - Prescriptions: Azithromycin [Zithromax] 250 mg PO Q24H 3 Days #3 tablet Cefdinir [Omnicef] 300 mg PO DAILY 3 Days #3 capsule Tramadol HCl [Ultram] 50 mg PO TID PRN #15 tab PRN Reason: Pain
== END 2017-04-01 14:04 | DRG 535 ==
LOC: EMEROO 02:03 → 3NENU 02:03 → SUATTDRO 19:56
PROVIDERS: ADMIT Pediatrics; ATTEND Internal Medicine

== ENCOUNTER 2017-05-03 03:17 | Inpatient (IN) ==
[2017-05-03] MEDS ORDERED: 0.9 % Sodium Chloride 500 ML IVC ONE ×2 (03:43→08:47)
--- NOTE | 2017-05-03 03:43 | Emergency Department Note ---
Disposition Clinical Impression: Hypotension due to medication, HCAP (healthcare-associated pneumonia) Altered mental status Qualifiers: Altered mental status type: unspecified Qualified Code(s): R41.82 - Altered mental status, unspecified Disposition: Admitted As Inpatient Condition: Good Time of Disposition: 05:48 General Adult HPI - General Chief complaint: ED General Medical Stated complaint: Low BP Time Seen by Provider: 05/03/17 03:20 Source: patient, EMS Mode of arrival: EMS Limitations: language barrier (Citizen [place]-speaking, Vietnamese is limited) Nursing Notes Reviewed: Yes Vital Signs Reviewed: Yes - History of Present Illness HPI Narrative: 87-year-old female Citizen [place]-speaking presents to the ED via EMS from [facility] for low blood pressure and altered mentation. Per the report patient's blood pressure was significantly elevated 180, patient was given clonidine in her blood pressure dropped to systolic 80. Since then she has been lethargic and not acting herself. Patient does not speak Vietnamese well and is difficult to obtain further information. She appears in no acute distress. She denies any difficulty breathing or chest pain. She denies any pain. She is a able to answer some simple questions. Her blood pressure here is systolic 100. Nothing was given for her. EKG was performed showed atrial fibrillation. Per the [facility]pc she has a history of atrial fibrillation but is not found in their reports. At this time we did not know what her baseline is. Altered mental status workup initiated including a CT of the head. Will continue to monitor. On lung auscultation she does not appear fluid overloaded. Will give her some fluids. Pain Scale: 0 - Related Data Home Medications Medication Instructions Recorded Confirmed Alendronate Sodium 70 mg PO QWEEK MDD wednesday10/22/15 03/29/17 Aspirin [Lo-Dose Aspirin EC] 81 mg PO DAILY 10/22/15 03/29/17 Calcitriol [Rocaltrol] 0.25 mg PO DAILY 10/22/15 03/29/17 Ergocalciferol (VITAMIN D2) 50,000 unit PO QWEEK MDD wednesday10/22/15 03/29/17 [Vitamin D2 (50,000 UNIT)] Furosemide [Lasix] 20 mg PO BID PRN 10/22/15 03/29/17 Metoprolol [Lopressor] 50 mg PO BID 10/22/15 03/29/17 Montelukast [Singulair] 10 mg PO DAILY 10/22/15 03/29/17 Potassium Chloride [K-Tab ER] 20 meq PO BID 10/22/15 03/29/17 Rivaroxaban [Xarelto] 20 mg PO DAILY 10/22/15 03/29/17 Simvastatin [Zocor] 10 mg PO DAILY 10/22/15 03/29/17 Previous Rx's Medication Instructions Recorded Azithromycin [Zithromax] 250 mg PO Q24H 3 Days #3 tablet 03/31/17 Cefdinir [Omnicef] 300 mg PO DAILY 3 Days #3 capsule 03/31/17 Tramadol HCl [Ultram] 50 mg PO TID PRN #15 tab 03/31/17 Allergies Allergy/AdvReac Type Severity Reaction Status Date / Time Penicillins Allergy Hives Verified 06/28/15 14:53 loratadine AdvReac See Verified 06/28/15 14:53 Comments sulfamethoxazole AdvReac See Verified 06/28/15 14:53 [From Bactrim] Comments trimethoprim [From Bactrim] AdvReac See Verified 06/28/15 14:53 Comments All systems ED: reviewed and negative except as stated. Review of Systems: As Per HPI Constitutional: Denies: fever, chills ENT ED: Denies: congestion Cardiovascular: Denies: chest pain Respiratory: Reports: cough. Denies: dyspnea Gastrointestinal: Denies: abdominal pain, nausea, vomiting Genitourinary: Denies: urgency, dysuria Neurological: Reports: confusion. Denies: headache Past Medical History - Past Medical History Attestation: Yes The following information was validated with the patient. Source: patient Medical history: Reports: arthritis, atrial fibrillation, CVA, diabetes, fibromyalgia, GERD, hyperlipidemia, hypertension, osteoporosis, renal disease, TIA, other Surgical history: Reports: hysterectomy, ALISON/BSO Psychiatric history: Reports: no psych history, other - Social History Smoking Status: Never smoker Smokeless Tobacco Status: No Alcohol use: Reports: none Drug use: Reports: none Physical Exam - General Limitations: other General appearance: alert Course - Reevaluation(s) Reevaluation #1: Patient's blood pressure remains in the systolic 90 to 100. Further report for the [facility] and was greater than 180 and then they gave clonidine. Suspect her blood pressure is likely secondary to medication. Otters in the room and states she has been more confused are past week sensor fallen pelvic fracture. She was recently hospitalized. Family is concern that at [place] they are not receiving proper medical care. Patient is somnolent but the family states she has not been sleeping well over the past several days. She is easily arousable and oriented. She does recognize her family members. This CT of the head showed chronic ischemic changes they also noted small foci of acute ischemia cannot be excluded. She has no focal neural deficits. Lungs auscultation clear I laterally. Chest x-ray discerning for by bibasilar pneumonia. Family reports she was given antibiotics continues to have a persistent cough. Chest x-ray appears slightly worse than prior. Will treat her for healthcare acquired pneumonia with vancomycin and Zosyn. Review for lab she does not have a leukocytosis. Suspect this was more than a incidental finding. She is not septic from disinfection. She does not meet any of the sepsis criteria. Urinalysis is not consistent with infection. There is not one identifiable source for her altered mental status it could be secondary to dementia as the family states her confusion has been ongoing for several months but worse the past week. She has chronic anemia that is stable. Troponin is less than 0.03. She has chronic atrial fibrillation and is not in rapid ventricular response at this time. Given her symptoms and persistent hypotension she would benefit continued monitoring. Family are in agreement with this plan. Impression is altered mental status, hypotension secondary to medication and healthcare acquired pneumonia. - Consultations Consultation #1: Spoke with on-call hospitalist corie King to admit for AMS, hypotension secondary to medication, incidental HCAP. No further orders at this time Vital Signs Temperature 97.5 F L 05/03/17 03:19 Pulse Rate 62 05/03/17 03:19 Respiratory Rate 16 05/03/17 03:19 Blood Pressure 103/57 05/03/17 03:19 O2 Sat by Pulse Oximetry 97 05/03/17 03:19 Temperature 97.5 F L 05/03/17 03:19 Pulse Rate 56 05/03/17 06:27 Respiratory Rate 16 05/03/17 03:19 Blood Pressure 85/54 05/03/17 06:27 O2 Sat by Pulse Oximetry 99 05/03/17 06:27 Oxygen Delivery Oxygen Delivery Nasal Cannula Medical Decision Making - [facility] Narrative Medical decision making narrative: Patient was discussed with my attending physician who agrees with ED management and final disposition. They independently evaluated the patient. Please refer to their attestation to this encounter for additional information. This note was generated by [employer] voice recognition software and as a result grammatical or spelling errors may occur using this program. - Medical Records Medical records reviewed: Yes I reviewed the patient's medical records. - Lab Data Lab results reviewed: Yes I reviewed the patient's lab results. Result diagrams: 05/03/17 03:45 05/03/17 03:45 Lab Results 05/03/17 05/03/17 05/03/17 Range/Units 03:21 03:45 03:45 WBC 7.8 (4.3-11.1) K/mcL RBC 2.99 L (3.82-4.97) M/mcL Hgb 9.8 L (11.5-15.4) g/dL Hct 32.0 L (35.3-44.9) % MCV 107.0 H (83.0-100.0) fL MCH 32.8 (28.0-33.3) pg MCHC 30.6 L (31.6-35.5) g/dL RDW 14.9 H (11.5-14.5) % Plt Count 234 (140-400) K/mcL MPV 10.3 (9.4-12.4) fL Immature Gran % 0.3 (0-4) % Seg Neutrophils % 71.8 % Lymphocytes % 15.2 % Monocytes % 9.0 % Eosinophils % 2.5 % Basophils % 1.2 % Neutrophils # 5.6 (1.6-8.9) K/mcL Lymphocytes # 1.2 (0.6-4.6) K/mcL Monocytes # 0.7 (0.0-1.3) K/mcL Eosinophils # 0.2 (0.0-0.6) K/mcL Basophils # 0.1 (0.0-0.2) K/mcL Sodium 134 L (136-145) mEq/L Potassium 4.1 (3.5-5.1) mEq/L Chloride 103 (98-107) mEq/L Carbon Dioxide 28 (23-29) mEq/L BUN 13 (8-23) mg/dL Creatinine 0.85 (0.60-1.20) mg/dL Est GFR ( Amer) > 60 (> 60) Est GFR (Non-Af Amer) > 60 (> 60) BUN/Creatinine Ratio 15 (6-26) Glucose 315 H (70-105) mg/dL POC Glucose 274 H (58-89) Calculated Osmolality 290 (280-300) Calcium 8.6 (8.6-10.3) mg/dL Total Bilirubin 0.5 (0.3-1.0) mg/dL Direct Bilirubin 0.1 (0.0-0.2) mg/dL Indirect Bilirubin 0.4 (0.0-1.2) mg/dL AST 15 (13-39) Units/L ALT 13 (7-52) Units/L Alkaline Phosphatase 121 H (34-104) Units/L Troponin I (< 0.04) ng/mL Serum Total Protein 5.9 L (6.4-8.9) g/dL Albumin 2.8 L (3.5-5.7) g/dL Globulin 3.1 (2.4-3.5) g/dL Albumin/Globulin Ratio 0.9 L (1.1-2.2) Urine Color (Yellow) Urine Clarity (Clear) Urine pH (5.0-8.0) pH Units Ur Specific [place] (1.010-1.025) Urine Protein (Neg-Trace) mg/dL Urine Glucose (UA) (Normal) mg/dL Urine Ketones (Negative) mg/dL Urine Blood (Negative) Urine Nitrite (Negative) Urine Bilirubin (Negative) Urine Urobilinogen (Normal) mg/dL Ur Leukocyte Esterase (Negative) Ur Culture Indicated? (NO) 05/03/17 05/03/17 Range/Units 03:45 04:16 WBC (4.3-11.1) K/mcL RBC (3.82-4.97) M/mcL Hgb (11.5-15.4) g/dL Hct (35.3-44.9) % MCV (83.0-100.0) fL MCH (28.0-33.3) pg MCHC (31.6-35.5) g/dL RDW (11.5-14.5) % Plt Count (140-400) K/mcL MPV (9.4-12.4) fL Immature Gran % (0-4) % Seg Neutrophils % % Lymphocytes % % Monocytes % % Eosinophils % % Basophils % % Neutrophils # (1.6-8.9) K/mcL Lymphocytes # (0.6-4.6) K/mcL Monocytes # (0.0-1.3) K/mcL Eosinophils # (0.0-0.6) K/mcL Basophils # (0.0-0.2) K/mcL Sodium (136-145) mEq/L Potassium (3.5-5.1) mEq/L Chloride (98-107) mEq/L Carbon Dioxide (23-29) mEq/L BUN (8-23) mg/dL Creatinine (0.60-1.20) mg/dL Est GFR ( Amer) (> 60) Est GFR (Non-Af Amer) (> 60) BUN/Creatinine Ratio (6-26) Glucose (70-105) mg/dL POC Glucose (58-89) Calculated Osmolality (280-300) Calcium (8.6-10.3) mg/dL Total Bilirubin (0.3-1.0) mg/dL Direct Bilirubin (0.0-0.2) mg/dL Indirect Bilirubin (0.0-1.2) mg/dL AST (13-39) Units/L ALT (7-52) Units/L Alkaline Phosphatase (34-104) Units/L Troponin I < 0.03 (< 0.04) ng/mL Serum Total Protein (6.4-8.9) g/dL Albumin (3.5-5.7) g/dL Globulin (2.4-3.5) g/dL Albumin/Globulin Ratio (1.1-2.2) Urine Color Yellow (Yellow) Urine Clarity Clear (Clear) Urine pH 7.5 (5.0-8.0) pH Units Ur Specific [place] 1.012 (1.010-1.025) Urine Protein Negative (Neg-Trace) mg/dL Urine Glucose (UA) Normal (Normal) mg/dL Urine Ketones Negative (Negative) mg/dL Urine Blood Negative (Negative) Urine Nitrite Negative (Negative) Urine Bilirubin Negative (Negative) Urine Urobilinogen Normal (Normal) mg/dL Ur Leukocyte Esterase Negative (Negative) Ur Culture Indicated? NO (NO) - Radiology Data Radiology results reviewed: Yes I reviewed the patient's radiology results. Chest X-Ray 05/03/17 03:29 IMPRESSION: Bibasilar atelectasis and/or pneumonia. D/ / Nestor Deleon MD / Nestor Deleon MD Interpreting Provider: Nestor Deleon MD Head CT 05/03/17 03:30 IMPRESSION: Severe small vessel chronic ischemic changes without acute hemorrhage or definite evidence for acute ischemia. Small foci of acute ischemia cannot be excluded. Acute bilateral maxillary sinusitis. D/ / Nestor Deleon MD / Nestor Deleon MD Interpreting Provider: Nestor Deleon MD - EKG Data EKG #1 EKG attestation: Yes I reviewed and interpreted this EKG. EKG results narrative: EKG performed 032 he sudha fibrillation 68 bpm, QRS 87, no ST elevations or depression, T wave inversion in the V1 and V2 likely physiologic, compared to prior EKG performed 03/31/2017 which showed atrial fibrillation RVR. No acute ischemic changes. Attestation Statement - Attestation Attestation: I, Polo Torres MD, personally evaluated this patient and discussed their management with the resident physician. I reviewed the resident's note and agree with the documented findings, medical decision making, and plan of care. 87-year-old female presents to the emergency department from a local [facility] after she had an episode of medication-induced hypotension. They reported her blood pressure was high and they gave her clonidine and then she became hypotensive. He also reports some decrease in mental status recently. Patient appears to have Alzheimer's but daughter states she has never been actually diagnosed with it. Patient is alert and responds and answers questions but her speech is sometimes garbled and difficult to understand. Daughter reports that it has been like this recently on and seems to be getting progressively worse. Patient denies chest pain or shortness of breath. On examination patient is a well-developed thin elderly female in no acute distress. She is alert but seems confused. No cyanosis or diaphoresis. Chest is nontender to palpation. Breath sounds are equal bilaterally. No definite rales or wheezes. Heart is irregularly irregular. Abdomen soft and nontender with normal bowel sounds. Labs reviewed. EKG shows atrial fibrillation with a normal rate. Prior EKG also shows atrial fibrillation. Chest x-ray shows bibasilar atelectasis and/or pneumonia. The hospitalist, Dr. Rascon, was consulted and accepted the admission of the patient.
[2017-05-03 03:53] LABS: Basophils # 0.1 K/mcL (0.0-0.2); Basophils % 1.2 %; Eosinophils # 0.2 K/mcL (0.0-0.6); Eosinophils % 2.5 %; Hemoglobin 9.8 g/dL (11.5-15.4); Immature Granulocytes % 0.3 % (0-4); Lymphocytes # 1.2 K/mcL (0.6-4.6); Lymphocytes % 15.2 %; Mean Corpuscular HGB Conc 30.6 g/dL (31.6-35.5); Mean Corpuscular Hemoglobin 32.8 pg (28.0-33.3); Mean Platelet Volume 10.3 fL (9.4-12.4); Monocytes # 0.7 K/mcL (0.0-1.3); Neutrophils # 5.6 K/mcL (1.6-8.9); Platelet Count 234 K/mcL (140-400); Red Blood Count 2.99 M/mcL (3.82-4.97); Red Cell Distribution Width 14.9 % (11.5-14.5); Segmented Neutrophils % 71.8 %
[2017-05-03 04:08] LABS: Alanine Aminotransferase 13 Units/L (7-52); Albumin 2.8 g/dL (3.5-5.7); Albumin/Globulin Ratio 0.9 (1.1-2.2); Alkaline Phosphatase 121 Units/L (34-104); Aspartate Amino Transferase 15 Units/L (13-39); BUN/Creatinine Ratio 15 (6-26); Bilirubin,Direct 0.1 mg/dL (0.0-0.2); Bilirubin,Indirect 0.4 mg/dL (0.0-1.2); Bilirubin,Total 0.5 mg/dL (0.3-1.0); Blood Urea Nitrogen 13 mg/dL (8-23); Calcium 8.6 mg/dL (8.6-10.3); Carbon Dioxide 28 mEq/L (23-29); Chloride 103 mEq/L (98-107); Globulin 3.1 g/dL (2.4-3.5); Glucose 315 mg/dL (70-105); Osmolality,Calculated 290 (280-300); Potassium 4.1 mEq/L (3.5-5.1); Sodium 134 mEq/L (136-145); Total Protein 5.9 g/dL (6.4-8.9); eGFR For African Americans > 60 (> 60); eGFR For Non-African Americans > 60 (> 60)
[2017-05-03 04:36] LABS: Bilirubin,Urine Negative (Negative); Blood,Urine Negative (Negative); Clarity,Urine Clear (Clear); Color,Urine Yellow (Yellow); Glucose,Urine (UA) Normal (Normal); Ketones,Urine Negative (Negative); Leukocyte Esterase,Urine Negative (Negative); Nitrite,Urine Negative (Negative); PH,Urine 7.5 pH Units (5.0-8.0); Protein,Urine Negative (Neg-Trace); Specific Gravity,Urine 1.012 (1.010-1.025); Urobilinogen,Urine Normal (Normal)
--- NOTE | 2017-05-03 08:58 | Internal Med History&Physical ---
Date of Encounter: 05/03/17 Time of Encounter: 08:55 Assessment and Plan (1) Altered mental status Current visit: Yes Status: Acute Rule out intracranial pathology given sudden decrease in blood pressure. We get brain MRI. NIH stroke scale every 4 hours. Appreciate neurology input. Also check EEG. Also check echocardiogram carotid Doppler. Qualifiers: Qualified Code(s): R41.82 - Altered mental status, unspecified (2) HCAP (healthcare-associated pneumonia) Current visit: Yes Status: Acute Start the patient on Aztreonam and Levaquin. Check sputum culture. (3) Afib Current visit: Yes Status: Acute Documentation show patient is on xarelto. await medication reconciliation Qualifiers: Qualified Code(s): I48.91 - Unspecified atrial fibrillation (4) Code status needs review Current visit: Yes Status: Acute Nurse will attempt to get [facility] records regarding her code status (5) Hypotension due to medication Current visit: Yes Status: Acute Hold all blood pressure medications. Hydrate the patient. Keep up more than 65. Monitor urine output. Internal Medicine - H&P: HPI Chief complaint: decreased responsiveness History of present illness: Ms. Dang is a 87 year old female presents to the emergency room today with decreased level of alertness. Patient is unable to provide any history and history is obtained from chart review as well as patients son-in-law. Reportedly son-in-law was called by the [facility] at approximately 2 AM because patient was difficult to arouse. Reportedly she was hypotensive with systolic blood pressure in the 80s and this was after clonidine was given for a hypertensive episode when her systolic blood pressure was 180 according to documentation. There was no obvious focal weakness. Patient was still lethargic and confused during my interview. Patient son-in-law mentioned that this is far from her baseline mental status. Son-in-law also mentioned that patient has been having productive cough for the past few days. No further history could be obtained from the patient. Past Med Surg Social Fam HX - Past Medical History Medical history: arthritis, atrial fibrillation, CVA, diabetes, fibromyalgia, GERD, hyperlipidemia, hypertension, osteoporosis, renal disease, TIA, other Psychiatric history: no psych history, other - Past Surgical History Surgical History: hysterectomy, ALISON/BSO - Social History Smoking Status: Never smoker Smokeless Tobacco Status: No Alcohol use: none Drug use: none - Family History Daughter Family Member Ethnicity: Non- Living Status: Still Living Hx Family Cardiac Disorders: Yes (Father had aortic anyurism) Hx Family Respiratory Disorders: No Hx Family Cancer: No Hx Family GI Disorders: No Hx Family Endocrine Disorder: No Hx Family Neuromuscular Disorders: No Hx Family Neurologic Disorders: No Hx Family HEENT Disorders: No Hx Family Autoimmune Disorders: No Internal Medicine - H&P: Meds Alendronate Sodium 70 mg PO QWEEK MDD wednesday10/22/15 [History] Aspirin [Lo-Dose Aspirin EC] 81 mg PO DAILY 10/22/15 [History] Calcitriol [Rocaltrol] 0.25 mg PO DAILY 10/22/15 [History] Ergocalciferol (VITAMIN D2) [Vitamin D2 (50,000 UNIT)] 50,000 unit PO QWEEK MDD wednesday10/22/15 [History] Furosemide [Lasix] 20 mg PO BID PRN 10/22/15 [History] Metoprolol [Lopressor] 50 mg PO BID 10/22/15 [History] Montelukast [Singulair] 10 mg PO DAILY 10/22/15 [History] Potassium Chloride [K-Tab ER] 20 meq PO BID 10/22/15 [History] Rivaroxaban [Xarelto] 20 mg PO DAILY 10/22/15 [History] Simvastatin [Zocor] 10 mg PO DAILY 10/22/15 [History] Azithromycin [Zithromax] 250 mg PO Q24H 3 Days #3 tablet 03/31/17 [Rx] Cefdinir [Omnicef] 300 mg PO DAILY 3 Days #3 capsule 03/31/17 [Rx] Tramadol HCl [Ultram] 50 mg PO TID PRN #15 tab 03/31/17 [Rx] 3 Allergy/AdvReac Type Severity Reaction Status Date / Time Penicillins Allergy Hives Verified 06/28/15 14:53 loratadine AdvReac See Verified 06/28/15 14:53 Comments sulfamethoxazole AdvReac See Verified 06/28/15 14:53 [From Bactrim] Comments trimethoprim [From Bactrim] AdvReac See Verified 06/28/15 14:53 Comments All Systems PM: A 10-system review of systems was performed and is negative for pertinent findings except as documented above in the HPI. Review of systems: 10 point review of systems is negative except for HPI - Constitutional Vitals: Temp Pulse Resp BP Pulse Ox 98.7 F 63 16 105/65 99 05/03/17 06:41 05/03/17 06:41 05/03/17 06:41 05/03/17 06:41 05/03/17 06:41 Exam: Gen.: patient is lethargic, confused Cardiac: normal S1 S2 no additional sounds are murmurs. Chest: diminished air entry in the bases with some crackles Abdomen: soft nontender nondistended. Lower extremity no swelling mucous membranes: moist Neuro: facial droop. NO other obvious focal neurologic deicit. Patient not complying with neuro exam very well Internal Med - H&P Results - Labs CBC & Chem 7: 05/03/17 03:45 05/03/17 03:45
[2017-05-03] MEDS ORDERED: Aztreonam 1,000 MG in Water for inj. (sterile) 10 ML IVP SCH (09:00)
[2017-05-03] MEDS ORDERED: 0.9 % Sodium Chloride 1,000 ML IVC SCH (09:00)
[2017-05-03] MEDS ORDERED: Levofloxacin 750 MG/150 ML 750 MG/150 ML BAG IVPB SCH ×2 (09:00→15:00)
--- NOTE | 2017-05-03 09:53 | Electrocardiograph Report ---
[place] [id number] Test Date: 2017-05-03 Pat Name: Maddy Dang Department: 102 Room: 2A51 Gender: F Bird Keeper: Donald : 1930 Requested By: Silvano Caldera Order Number: [id number] Reading MD: Ami Fountain Measurements Intervals [place] Rate: 68 P: MN: 0 QRS: 63 QRSD: 87 T: 48 QT: 450 QTc: 467 Interpretive Statements ATRIAL FIBRILLATION VOLTAGE CRITERIA FOR LVH [MEETS CRITERIA IN ONE OF: R(aVL), S(V1), R(V5), R(V5/V6) +S(V1)] Electronically Signed On 05-03-2017 9:52:28 EST by Ami Fountain
--- NOTE | 2017-05-03 13:04 | Neurology - Consult Note ---
<Alida Mejia - Last Filed: 05/03/17 16:13> Date of Encounter: 05/03/17 Time of Encounter: 11:30 Assessment and Plan (1) Decreased alertness Current Visit: Yes Status: Resolved currently resolved. patient is alert, speaks and follows commands. Head CT: small vessel chronic ischemic changes without acute hemorrhage or ischemia. MRI brain: no acute infarct. moderate global parenchymal volume loss with extensive chronic microvascular ischemic change, scattered sinusitis, bilateral mastoid effusions. patient is alert now and follows commands. Plan: continue therapy with anticoagulation and statin. PT/OT consult to certified social workers in health care (2) Altered mental status Current Visit: Yes Status: Acute per family members patient has been having more and more periods of confusion recently. etiology unclear at this time. could be due to underling microvascular ischemic changes vs. dementia vs. metabolic causes Plan: B12, folate, TSH, RPR pending. Qualifiers: Altered mental status type: unspecified Qualified Code(s): R41.82 - Altered mental status, unspecified History of Present Illness Chief complaint: decreased alertness HPI: Ms. Dang is a 87 year old female with PMHx of arthritis, Afib (on Xarelto) , DM, fibromyalgia, GERD, HLD, HTN, TIA, hx of CVA in 2013. Patient is temporarily at assisted for rehab. history was primarily obtained from patient's son-in-law, who was sitting at the bedside. He stated that earlier in the day, patient's blood pressure was elevated and she was given clonidine. After this, she became very hypotensive and had become unresponsive. patient was subsequently transferred to [place] [facility] for further evaluation. Patient was alert during examination. She did display some slurred speech. she reports a headache and chills. she denies nausea, vomiting, diarrhea, fever. she denies any further problems today. Past Med Surg Social Fam HX - Past Medical History Medical history: arthritis, atrial fibrillation, CVA, diabetes, fibromyalgia, GERD, hyperlipidemia, hypertension, osteoporosis, renal disease, TIA, other Psychiatric history: no psych history, other - Past Surgical History Surgical History: hysterectomy, ALISON/BSO - Social History Smoking Status: Never smoker Smokeless Tobacco Status: No Alcohol use: none Drug use: none - Family History Daughter Family Member Ethnicity: Non- Living Status: Still Living Hx Family Cardiac Disorders: Yes (Father had aortic anyurism) Hx Family Respiratory Disorders: No Hx Family Cancer: No Hx Family GI Disorders: No Hx Family Endocrine Disorder: No Hx Family Neuromuscular Disorders: No Hx Family Neurologic Disorders: No Hx Family HEENT Disorders: No Hx Family Autoimmune Disorders: No Medications and Allergies Alendronate Sodium 70 mg PO SA 10/22/15 [History] Calcitriol [Rocaltrol] 0.25 mg PO DAILY 10/22/15 [History] Ergocalciferol (VITAMIN D2) [Vitamin D2 (50,000 UNIT)] 50,000 unit PO WE [History] Furosemide [Lasix] 20 mg PO BID PRN 10/22/15 [History] Metoprolol [Lopressor] 50 mg PO BID 10/22/15 [History] Montelukast [Singulair] 10 mg PO DAILY 10/22/15 [History] Potassium Chloride [K-Tab ER] 20 meq PO BID 10/22/15 [History] Rivaroxaban [Xarelto] 20 mg PO DAILY 10/22/15 [History] Simvastatin [Zocor] 10 mg PO DAILY 10/22/15 [History] Ipratropium/Albuterol Neb [Duoneb] 3 ml IH Q4HR PRN 05/03/17 [History] MOM Conc [Milk of Magnesia Conc] 30 ml PO DAILY PRN 05/03/17 [History] Ondansetron HCl [Zofran] 4 mg PO Q6H PRN 05/03/17 [History] Tramadol HCl [Ultram] 50 mg PO BID PRN 05/03/17 [History] 3 Allergy/AdvReac Type Severity Reaction Status Date / Time Penicillins Allergy Hives Verified 06/28/15 14:53 loratadine AdvReac See Verified 05/03/17 12:58 Comments sulfamethoxazole AdvReac See Verified 05/03/17 12:58 [From Bactrim] Comments trimethoprim [From Bactrim] AdvReac See Verified 05/03/17 12:58 Comments All Systems: A 10-system review of systems was performed and is negative for pertinent findings except as documented above in the HPI. - Constitutional Constitutional ROS IM: as per HPI Physical Examination - Vital Signs Vital Signs: Initial Vital Signs Temp Pulse Resp BP Pulse Ox 97.5 F L 62 16 103/57 97 01/08/18 03:19 05/03/17 03:19 05/03/17 03:19 05/03/17 03:19 05/03/17 03:19 - Constitutional General appearance: comfortable, other (alert and oriented to person and place. patient is having slurred speech.) - Neurologic Sensorimotor examination: intact Detailed motor examination: grossly full strength in all extremities Motor examination - right side: 5/5: deltoids, biceps, triceps, wrist flexion, wrist extension, head swamper Motor examination - left side: 5/5: deltoids, biceps, triceps, wrist flexion, wrist extension, hip flexors Detailed sensory examination: intact Reflexes: Brachioradialis: 2+, Patella: 2+, Achilles: 2+ Mental Status Examination: awake, alert, oriented to person, oriented to place, follows commands appropriately, lethargic Cranial nerve examination: PERRL, EOMI, visual mckeon intact, sensory to face intact Results - Laboratory Findings CBC and BMP: 05/03/17 03:45 05/03/17 03:45 Abnormal lab findings: Abnormal lab results RBC 2.99 M/mcL (3.82-4.97) L 05/03/17 03:45 Hgb 9.8 g/dL (11.5-15.4) L 05/03/17 03:45 Hct 32.0 % (35.3-44.9) L 05/03/17 03:45 MCV 107.0 fL (83.0-100.0) H 05/03/17 03:45 MCHC 30.6 g/dL (31.6-35.5) L 05/03/17 03:45 RDW 14.9 % (11.5-14.5) H 05/03/17 03:45 Sodium 134 mEq/L (136-145) L 05/03/17 03:45 Glucose 315 mg/dL (70-105) H 05/03/17 03:45 POC Glucose 274 (58-89) H 05/03/17 03:21 Alkaline Phosphatase 121 Units/L (34-104) H 05/03/17 03:45 Serum Total Protein 5.9 g/dL (6.4-8.9) L 05/03/17 03:45 Albumin 2.8 g/dL (3.5-5.7) L 05/03/17 03:45 Albumin/Globulin Ratio 0.9 (1.1-2.2) L 05/03/17 03:45 Consult Discharge Plan - Plan Referrals: Jessica Brewer MD [Primary Care Provider] - (Patient will follow up with f pcp) <Dre Dumont - Last Filed: 05/03/17 16:26> Date of Encounter: 05/03/17 Assessment and Plan (1) Decreased alertness Current Visit: Yes Status: Resolved My suspicion that this patient likely has a baseline dementia perhaps a vascular type dementia due to multi-infarct some acute process resulting in acute confusion. No evidence of acute infarct. I will order B12 folate, methylmalonic acid, RPR, as well as a thyroid panel to rule out other offenders. Ultimately however her dementia may be progressing and she may require either assisted living or extended care facility. Further recommendations will be made pending the outcome of these tests. Also recommend certified social workers in health care evaluation to sort out the situation with the family dynamics which seem a bit contentious at this time. History of Present Illness HPI: Ms. Dang is a 87 year old female seen for neurologic consultation secondary to confusion. Patient was seen and evaluated independently, case was discussed with the neurology resident. I agree with her assessment as stated above. Patient did have an MRI scan of the brain which did not reveal evidence of an acute infarction however did reveal severe periventricular leukomalacia. Metabolic panel reveals no specific abnormalities that I would suspect of causing mental status changes. Chest x-ray was suspicious for bibasilar infiltrates. All Systems: A 10-system review of systems was performed and is negative for pertinent findings except as documented above in the HPI. Physical Examination - Vital Signs Vital Signs: Initial Vital Signs Temp Pulse Resp BP Pulse Ox 97.5 F L 62 16 103/57 97 05/03/17 03:19 05/03/17 03:19 05/03/17 03:19 05/03/17 03:19 05/03/17 03:19 Results - Laboratory Findings CBC and BMP: 05/03/17 03:45 05/03/17 03:45 Abnormal lab findings: Abnormal lab results RBC 2.99 M/mcL (3.82-4.97) L 05/03/17 03:45 Hgb 9.8 g/dL (11.5-15.4) L 05/03/17 03:45 Hct 32.0 % (35.3-44.9) L 05/03/17 03:45 MCV 107.0 fL (83.0-100.0) H 05/03/17 03:45 MCHC 30.6 g/dL (31.6-35.5) L 05/03/17 03:45 RDW 14.9 % (11.5-14.5) H 05/03/17 03:45 Sodium 134 mEq/L (136-145) L 05/03/17 03:45 Glucose 315 mg/dL (70-105) H 05/03/17 03:45 POC Glucose 274 (58-89) H 05/03/17 03:21 Alkaline Phosphatase 121 Units/L (34-104) H 05/03/17 03:45 Serum Total Protein 5.9 g/dL (6.4-8.9) L 05/03/17 03:45 Albumin 2.8 g/dL (3.5-5.7) L 05/03/17 03:45 Albumin/Globulin Ratio 0.9 (1.1-2.2) L 05/03/17 03:45
[2017-05-03] MEDS: Famotidine 20 MG/2 ML VIAL IVP SCH (16:12)
[2017-05-03] MEDS: Aspirin Enteric Coated 81 MG Tablet PO SCH (16:12)
[2017-05-03] MEDS: Aztreonam 1,000 MG in Water for inj. (sterile) 20 ML 10 ML IVP SCH (18:17)
[2017-05-04] MEDS: Aztreonam 1,000 MG in Water for inj. (sterile) 20 ML 10 ML IVP SCH ×2 (00:59→08:16)
[2017-05-04 05:26] LABS: Basophils # 0.1 K/mcL (0.0-0.2); Basophils % 0.8 %; Eosinophils # 0.2 K/mcL (0.0-0.6); Eosinophils % 2.1 %; Hematocrit 33.3 % (35.3-44.9); Hemoglobin 10.4 g/dL (11.5-15.4); Immature Granulocytes % 0.3 % (0-4); Lymphocytes # 1.3 K/mcL (0.6-4.6); Lymphocytes % 13.1 %; Mean Corpuscular HGB Conc 31.2 g/dL (31.6-35.5); Mean Corpuscular Hemoglobin 33.2 pg (28.0-33.3); Mean Corpuscular Volume 106.4 fL (83.0-100.0); Mean Platelet Volume 10.2 fL (9.4-12.4); Monocytes # 0.9 K/mcL (0.0-1.3); Monocytes % 8.8 %; Neutrophils # 7.2 K/mcL (1.6-8.9); Platelet Count 242 K/mcL (140-400); Red Blood Count 3.13 M/mcL (3.82-4.97); Red Cell Distribution Width 14.7 % (11.5-14.5); Segmented Neutrophils % 74.9 %
[2017-05-04 05:44] LABS: BUN/Creatinine Ratio 10 (6-26); Blood Urea Nitrogen 7 mg/dL (8-23); Calcium 8.4 mg/dL (8.6-10.3); Carbon Dioxide 25 mEq/L (23-29); Chloride 107 mEq/L (98-107); Glucose 105 mg/dL (70-105); Magnesium 2.1 mg/dL (1.6-2.6); Osmolality,Calculated 284 (280-300); Potassium 3.6 mEq/L (3.5-5.1); Sodium 138 mEq/L (136-145); eGFR For African Americans > 60 (> 60); eGFR For Non-African Americans > 60 (> 60)
[2017-05-04 06:07] LABS: Folate 21.7 ng/mL (3.0-16.0)
[2017-05-04] MEDS: Aspirin Enteric Coated 81 MG Tablet PO SCH (08:17)
[2017-05-04] MEDS: Famotidine 20 MG/2 ML VIAL IVP SCH (08:17)
--- NOTE | 2017-05-04 09:02 | Neurology Progress Note ---
<Alida Mejia - Last Filed: 05/04/17 15:21> Date of Encounter: 05/04/17 Time of Encounter: 08:59 Assessment and Plan (1) Decreased alertness Current Visit: Yes Status: Resolved currently resolved. patient is alert, speaks and follows commands. Head CT: small vessel chronic ischemic changes without acute hemorrhage or ischemia. MRI brain: no acute infarct. moderate global parenchymal volume loss with extensive chronic microvascular ischemic change, scattered sinusitis, bilateral mastoid effusions. patient is alert now and follows commands. Plan: continue therapy with anticoagulation and statin. PT/OT consult to older adult social work specialist labs reviewed. likely more consistent with progression of dementia than metabolic cause. continue optimal medical therapy. likely needs placement and supervision. (2) Altered mental status Current Visit: Yes Status: Acute per family members patient has been having more and more periods of confusion recently. etiology unclear at this time. could be due to underling microvascular ischemic changes vs. dementia vs. metabolic causes B12: 615 Folate: 21.7 TSH: 2.366 Plan: RPR pending plan as above. Subjective Principal diagnosis: altered mental status Interval history: 87F evaluated at bedside. she denies nausea, vomiting, diarrhea, fever, chills, chest pain, shortness of breath. she is alert and oriented x3. she was sitting up in bed talking, and appeared in no acute distress. Objective - Constitutional Vitals: Temp Pulse Resp BP Pulse Ox 98.1 F 86 16 137/91 96 05/04/17 07:31 05/04/17 07:31 05/04/17 07:31 05/04/17 07:31 05/04/17 07:31 General appearance: Present: A&O X 3, pleasant, no acute distress. Absent: answers questions appropriately Exam: patient appeared to be speaking in telugu and would occasionally speak in syriac. - Head Head exam: Present: atraumatic, normocephalic - Eye Eye exam: Present: EOMI, PERRL - Extremities Exam Extremities exam: Absent: cyanotic, pedal edema - Neurological Exam Sensorimotor examination: Present: intact Motor Examination: Present: grossly full strength in all extremities Motor examination - right side: 5/5: deltoids, biceps, triceps, wrist flexion, wrist extension, dining services manager Motor examination - left side: 5/5: deltoids, biceps, triceps, wrist flexion, wrist extension, hip flexors Sensation intact: Present: intact Reflexes: Brachioradialis: 2+, Patella: 2+ Mental Status Examination: Present: awake, alert, oriented to person, oriented to place, oriented to time, follows commands appropriately. Absent: answers questions appropriately Cranial nerve examination: Present: PERRL, EOMI, visual mckeon intact, sensory to face intact Results - Laboratory Findings CBC and BMP: 05/04/17 05:16 05/04/17 05:16 Abnormal lab findings: Abnormal lab results RBC 3.13 M/mcL (3.82-4.97) L 05/04/17 05:16 Hgb 10.4 g/dL (11.5-15.4) L 05/04/17 05:16 Hct 33.3 % (35.3-44.9) L 05/04/17 05:16 MCV 106.4 fL (83.0-100.0) H 05/04/17 05:16 MCHC 31.2 g/dL (31.6-35.5) L 05/04/17 05:16 RDW 14.7 % (11.5-14.5) H 05/04/17 05:16 BUN 7 mg/dL (8-23) L 05/04/17 05:16 POC Glucose 274 (58-89) H 05/03/17 03:21 Calcium 8.4 mg/dL (8.6-10.3) L 05/04/17 05:16 Alkaline Phosphatase 121 Units/L (34-104) H 05/03/17 03:45 Serum Total Protein 5.9 g/dL (6.4-8.9) L 05/03/17 03:45 Albumin 2.8 g/dL (3.5-5.7) L 05/03/17 03:45 Albumin/Globulin Ratio 0.9 (1.1-2.2) L 05/03/17 03:45 Folate 21.7 ng/mL (3.0-16.0) H 05/04/17 05:16 Consult Discharge Plan - Plan Referrals: Jessica Brewer MD [Primary Care Provider] - (Patient will follow up with [facility] p[facility]) <Dre Dumont - Last Filed: 05/04/17 15:37> Date of Encounter: 05/04/17 Time of Encounter: 15:32 Assessment and Plan (1) Decreased alertness Current Visit: Yes Status: Resolved As above. Dementia workup is essentially negative, RPR is pending. I believe that we are seeing the results of a baseline dementia along with a superimposed underlying embolic disturbance likely the pneumonia resulting in mild delirium. She seems to be improved today compared to yesterday. She is less agitated, and seems to be more pleasant. I recommend simply started her on Aricept 5 mg daily. I would like to follow up in my office for ongoing assessment after she is discharged. I will reevaluate her at your request. Subjective Interval history: The chart was reviewed, patient was seen and examined independently. The case was discussed with the neurology resident. I agree with her assessment as stated above. Carotid duplex Doppler study revealed nonstenotic plaquing, echocardiogram was unremarkable. Today she is very pleasant she is going back and forth between speaking Welsh and Japanese. She is not encephalopathic. However she remains pleasantly confused. My suspicion is that we are dealing with a baseline dementia with superimposed mild encephalopathy perhaps secondary to the pneumonia. The baseline dementia workup was negative, the RPR is pending. Objective - Constitutional Vitals: Temp Pulse Resp BP Pulse Ox 97.7 F 105 16 180/87 94 05/04/17 11:44 05/04/17 11:44 05/04/17 11:44 05/04/17 11:44 05/04/17 11:44 Results - Laboratory Findings CBC and BMP: 05/04/17 05:16 05/04/17 05:16 Abnormal lab findings: Abnormal lab results RBC 3.13 M/mcL (3.82-4.97) L 05/04/17 05:16 Hgb 10.4 g/dL (11.5-15.4) L 05/04/17 05:16 Hct 33.3 % (35.3-44.9) L 05/04/17 05:16 MCV 106.4 fL (83.0-100.0) H 05/04/17 05:16 MCHC 31.2 g/dL (31.6-35.5) L 05/04/17 05:16 RDW 14.7 % (11.5-14.5) H 05/04/17 05:16 BUN 7 mg/dL (8-23) L 05/04/17 05:16 POC Glucose 274 (58-89) H 05/03/17 03:21 Calcium 8.4 mg/dL (8.6-10.3) L 05/04/17 05:16 Alkaline Phosphatase 121 Units/L (34-104) H 05/03/17 03:45 Serum Total Protein 5.9 g/dL (6.4-8.9) L 05/03/17 03:45 Albumin 2.8 g/dL (3.5-5.7) L 05/03/17 03:45 Albumin/Globulin Ratio 0.9 (1.1-2.2) L 05/03/17 03:45 Folate 21.7 ng/mL (3.0-16.0) H 05/04/17 05:16
[2017-05-04] MEDS ORDERED: MOM Conc 10 ML UD.LIQ PO PRN (14:15)
--- NOTE | 2017-05-04 15:20 | Internal Med Progress Note ---
<Dominguez French - Last Filed: 05/04/17 15:16> Date of Encounter: 05/04/17 Time of Encounter: 15:16 - Assessment and plan (1) Altered mental status Current Visit: Yes Status: Acute Assessment and plan: Initially patient was admitted for altered mental status after having a hypotensive episode at nursing facility when given clonidine. Neurology was consulted. CT head: Showed small vessel chronic ischemic changes. Negative for any acute changes. MRI of the brain: Negative for acute ischemic changes. Moderate global parenchymal volume loss with extensive chronic microvascular ischemic changes. Bilateral Carotid Doppler: Nonstenotic plaque Echocardiogram: LVEF 60% indeterminant diastolic dysfunction. No PFO present. B12, folate, TSH within normal limits. RPR pending. Patient now alert and oriented 3 Likely patient's alteration in mental status was secondary to hypotensive event. 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 Continue aspirin, statin. Qualifiers: Altered mental status type: delirium Qualified Code(s): R41.0 - Disorientation, unspecified (2) Hypotension due to medication Current Visit: Yes Status: Resolved Assessment and plan: Resolved. IV fluids have been discontinued Secondary to clonidine given at nursing facility. Restart patient's Lasix and metoprolol. (3) Afib Current Visit: Yes Status: Acute Assessment and plan: Stable. Restart patient's metoprolol and xeralto. Qualifiers: Qualified Code(s): I48.91 - Unspecified atrial fibrillation (4) Pneumonia Current Visit: Yes Status: Ruled-out Assessment and plan: Unlikely patient has pneumonia. Lung exam: Clear. Denies cough, shortness of breath, sputum production. Chest x-ray is improved from previous admission where she was treated for community acquired pneumonia Plan: Discontinue antibiotics. Qualifiers: Pneumonia type: due to unspecified organism Laterality: unspecified laterality Lung location: unspecified part of lung Qualified Code(s): J18.9 - Pneumonia, unspecified organism (5) Anemia Current Visit: Yes Status: Chronic Assessment and plan: During previous admission patient was discovered to have right pelvic ramus fracture and developed anemia. Since then patient's hemoglobin has increased from 7.8 to 10.4. CBC in a.m. Qualifiers: Anemia type: unspecified type Qualified Code(s): D64.9 - Anemia, unspecified (6) Pubic ramus fracture Current Visit: Yes Status: Chronic Assessment and plan: Occurred during March 2017. Patient is admitted at [facility] during that time and was discharged to rehabilitation facility. PT/OT recommend patient return to rehabilitation facility. Qualifiers: Encounter type: subsequent encounter Fracture type: closed Laterality: right Fracture healing: with routine healing Qualified Code(s): S32.591D - Other specified fracture of right pubis, subsequent encounter for fracture with routine healing - Subjective Interval history: Alert oriented 3. Patient denies any overnight events. She has no complaints of chest pain, difficulty breathing, abdominal pain, lower extremity pain. Patient is not fluent in [place] but understands simple questions and speaks fluent [place]. - Constitutional Vitals: Temp Pulse Resp BP Pulse Ox 97.7 F 105 16 180/87 94 05/04/17 11:44 05/04/17 11:44 05/04/17 11:44 05/04/17 11:44 05/04/17 11:44 - Other Additional findings: General: Pleasant without distress HEENT: Head atraumatic, normocephalic, EOMI, PERRL, neck nontender to palpation , absent lymphadenopathy, Moist Mucous Membranes, Heart: Irregularly irregular Lungs: Clear to auscultation bilaterally Abdomen: Soft nontender, nondistended positive bowel sounds Skin: warm and dry Extremities: Absent pedal edema, Neuro: Cranial nerves II through XII intact, UE and LE sensation equal bilaterally, UE and LEstrength 5/5, alert oriented 3, Vascular: Pedal and radial pulses 2 out of 4 Internal Medicine: Result - Labs CBC & Chem 7: 05/04/17 05:16 05/04/17 05:16 Labs: Short CBC 05/04/17 Range/Units 05:16 WBC 9.6 (4.3-11.1) K/mcL Hgb 10.4 L (11.5-15.4) g/dL Hct 33.3 L (35.3-44.9) % Plt Count 242 (140-400) K/mcL Neutrophils # 7.2 (1.6-8.9) K/mcL BMP 05/04/17 05:16 Sodium 138 Potassium 3.6 Chloride 107 Carbon Dioxide 25 BUN 7 L Creatinine 0.70 Glucose 105 Calcium 8.4 L Consult Discharge Plan - Plan Referrals: Jessica Brewer MD [Primary Care Provider] - (Patient will follow up with [facility] p[facility]) <Germán Marcano - Last Filed: 05/04/17 16:15> Date of Encounter: 05/04/17 - Constitutional Vitals: Temp Pulse Resp BP Pulse Ox 97.7 F 105 16 180/87 94 05/04/17 11:44 05/04/17 11:44 05/04/17 11:44 05/04/17 11:44 05/04/17 11:44 Internal Medicine: Result - Labs CBC & Chem 7: 05/04/17 05:16 05/04/17 05:16 Labs: Short CBC 05/04/17 Range/Units 05:16 WBC 9.6 (4.3-11.1) K/mcL Hgb 10.4 L (11.5-15.4) g/dL Hct 33.3 L (35.3-44.9) % Plt Count 242 (140-400) K/mcL Neutrophils # 7.2 (1.6-8.9) K/mcL BMP 05/04/17 05:16 Sodium 138 Potassium 3.6 Chloride 107 Carbon Dioxide 25 BUN 7 L Creatinine 0.70 Glucose 105 Calcium 8.4 L - Attending Attestation I examined this patient and my medical decision-making was reviewed with the Resident Physician on 05/04/17. I agree with the documented findings, disposition and treatment plan as described except to the extent set forth below. 87-year-old female with a history of dementia, hyperlipidemia, diabetes mellitus , atrial fibrillation. She was hospitalized following an episode of hypotension associated with decreased alertness after receiving clonidine at the nursing facility. Workup since admission has been unremarkable. She has no focal neurologic deficits, head CT and brain MRI and negative, echocardiogram is unremarkable, and carotid Doppler ultrasound is unremarkable. Low suspicion for pneumonia-patient has no chest symptoms. Physical examination alert awake and oriented 2. Chest is clear to auscultation bilaterally. S1 and S2 no murmurs gallops or rubs. Abdomen is soft and non-tender. The patient has no pedal edema. Her blood pressure is beginning to be definitive. Labs and imaging reviewed unremarkable. Urinalysis is clean. Plan resume home medications. Resume Xarelto, D/C antibiotics for now, patient has no chest symptoms. Currently awaiting RPR, PT OT evaluation. Neuro eval noted, patient has been started on aricept Rest of details as in the resident physicians documentation.
[2017-05-04] MEDS ORDERED: Haloperidol Lactate 5 MG/ML VIAL IVP ONE (17:11)
[2017-05-04] MEDS ORDERED: Haloperidol Lactate 5 MG/ML VIAL ONE (17:24)
[2017-05-04] MEDS: Furosemide 20 MG TABLET PO SCH (17:25)
[2017-05-04] MEDS ORDERED: *HR* Rivaroxaban 10 MG TABLET PO SCH (18:00)
[2017-05-04] MEDS ORDERED: *HR* Metoprolol 5 MG/5 ML VIAL IVP ONE (18:17)
[2017-05-05] MEDS ORDERED: Haloperidol Lactate 5 MG/ML VIAL IVP ONE (05:32)
[2017-05-05 07:49] VITALS: BP 148/88
--- NOTE | 2017-05-05 08:27 | Discharge Summary ---
<Dominguez French - Last Filed: 05/05/17 08:24> Date of Encounter: 05/05/17 Time of Encounter: 08:24 - Discharge Diagnosis (1) Altered mental status Priority: Primary Status: Acute Qualifiers: Altered mental status type: delirium Qualified Code(s): R41.0 - Disorientation, unspecified (2) Hypotension due to medication Priority: Secondary Status: Resolved (3) Afib Priority: Secondary Status: Acute Qualifiers: Qualified Code(s): I48.91 - Unspecified atrial fibrillation (4) Pneumonia Priority: Secondary Status: Ruled-out Qualifiers: Pneumonia type: due to unspecified organism Laterality: unspecified laterality Lung location: unspecified part of lung Qualified Code(s): J18.9 - Pneumonia, unspecified organism (5) Anemia Priority: Secondary Status: Chronic Qualifiers: Anemia type: unspecified type Qualified Code(s): D64.9 - Anemia, unspecified (6) Pubic ramus fracture Priority: Secondary Status: Chronic Qualifiers: Encounter type: subsequent encounter Fracture type: closed Laterality: right Fracture healing: with routine healing Qualified Code(s): S32.591D - Other specified fracture of right pubis, subsequent encounter for fracture with routine healing - Discharge Medications Prescriptions: Donepezil [Aricept] 5 mg PO HS #30 tablet Home Medications: Alendronate Sodium 70 mg PO SA 10/22/15 [History] Calcitriol [Rocaltrol] 0.25 mcg PO DAILY 10/22/15 [History] Ergocalciferol (VITAMIN D2) [Vitamin D2 (50,000 UNIT)] 50,000 unit PO WE [History] Metoprolol [Lopressor] 50 mg PO BID 10/22/15 [History] Montelukast [Singulair] 10 mg PO DAILY 10/22/15 [History] Potassium Chloride [K-Tab ER] 20 meq PO BID 10/22/15 [History] Rivaroxaban [Xarelto] 20 mg PO DAILY 10/22/15 [History] Simvastatin [Zocor] 10 mg PO DAILY 10/22/15 [History] Ipratropium/Albuterol Neb [Duoneb] 3 ml IH Q4HR PRN 05/03/17 [History] MOM Conc [MILK OF MAGNESIA conc] 30 ml PO DAILY PRN 05/03/17 [History] Ondansetron HCl [Zofran] 4 mg PO Q6H PRN 05/03/17 [History] Tramadol HCl [Ultram] 50 mg PO BID PRN 05/03/17 [History] Donepezil [Aricept] 5 mg PO HS #30 tablet 05/05/17 [Rx] Furosemide [Lasix] 20 mg PO DAILY tablet 05/05/17 [Rx] Allergies/Adverse Reactions: 3 Allergy/AdvReac Type Severity Reaction Status Date / Time Penicillins Allergy Hives Verified 06/28/15 14:53 loratadine AdvReac See Verified 05/03/17 12:58 Comments sulfamethoxazole AdvReac See Verified 05/03/17 12:58 [From Bactrim] Comments trimethoprim [From Bactrim] AdvReac See Verified 05/03/17 12:58 Comments Date of admission: 05/03/17 09:24 Primary care physician: Jessica Brewer, Consults: 05/03/17 16:17 Consult to Drilling Fluids Specialist ([facility]) [CONS] Routine Reason For Exam: Reason for SW Consult: placement Discharging clinician: Dominguez French Anticipated date of discharge: 05/05/17 - Patient Status Disposition: Transfer Inpatient Rehab Fac Condition: Good Functional capacity at discharge: uses cane/walker Overall status at discharge: patient is progressing back to baseline - Discharge Instructions Follow Up With: Jessica Brewer MD [Primary Care Provider] - (Patient will follow up with f pcp) - Diet and Activity Activity: as per physical therapy Diet: other (advanced soft diet chopped meat) Hospital course: Ms. Dang is a 87 year old female history of atrial flutter fibrillation on xeralto presented after having hypotensive episode at half-way. Patient had systolic BP of 180 and was given clonidine and became hypotensive with systolic of 80 and also altered mental status. She was recently discharged from [facility] in March 2017 for pelvic fracture. Since then patient has been confused according to family. On presentation to [facility] her blood pressure was in the systolics 90-100. Patient was given IV fluids which resolved her hypotension. Patient underwent neurological workup with CT head which showed chronic ischemic changes. Neurology was consulted. Patient did not have any focal neurological deficits on presentation. She was alert and oriented 3. Workup also included MRI of the brain which is negative for acute ischemic changes but showed moderate global parenchymal volume loss with extensive chronic microvascular ischemic changes. Bilateral carotid Dopplers were negative. Echocardiogram showed left ventricular ejection fraction of 60%, no PFO present. B12, folate, TSH were within normal limits. 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 Patient was started on donepezil. She had a chest x-ray which was initially deemed to show pneumonia and patient was started on broad- spectrum antibiotics, oxygen supplementation. Urinalysis is negative for infection. Also patient did not meet SIRS criteria. After reviewing chest x- ray again and patient's physical exam did not show signs of pneumonia, antibiotics were discontinued. Overnight patient did have a acute event of confusion where she pulled out her IVs. She was treated with Haldol. Patient's blood pressure is stable after being restarted on her metoprolol and Lasix. This morning she is alert and oriented 3, eating breakfast on her bed, pleasant. PT/OT recommended patient return to rehabilitation facility. - Time Spent with Patient Total time spent providing and/or coordinating discharge services: - Constitutional Vitals: Temp Pulse Resp BP Pulse Ox 97.5 F L 87 17 148/88 95 05/05/17 07:47 05/05/17 07:47 05/05/17 07:47 05/05/17 07:47 05/05/17 07:47 - Other Additional findings: General: Pleasant without distress HEENT: Head atraumatic, normocephalic, EOMI, PERRL, neck nontender to palpation , absent lymphadenopathy, Moist Mucous Membranes, Heart: Irregularly irregular Lungs: Clear to auscultation bilaterally Abdomen: Soft nontender, nondistended positive bowel sounds Skin: warm and dry Extremities: Absent pedal edema, Neuro: Cranial nerves II through XII intact, UE and LE sensation equal bilaterally, UE and LEstrength 5/5, alert oriented 3, Vascular: Pedal and radial pulses 2 out of 4 <Germán Marcano T - Last Filed: 05/05/17 13:38> Date of Encounter: 05/05/17 Date of admission: 05/03/17 09:24 Primary care physician: Jessica Brewer, Consults: 05/03/17 16:17 Consult to Drilling Fluids Specialist ([facility]) [CONS] Routine Reason For Exam: Reason for SW Consult: placement Hospital course: Ms. Dang is a 87 year old female - Time Spent with Patient Total time spent providing and/or coordinating discharge services: Greater than 30 minutes - Constitutional Vitals: Temp Pulse Resp BP Pulse Ox 97.5 F L 87 17 148/88 95 05/05/17 07:47 05/05/17 07:47 05/05/17 07:47 05/05/17 07:47 05/05/17 11:23 - Attending Attestation I examined this patient and my medical decision-making was reviewed with the Resident Physician on 05/05/17. I agree with the documented findings, disposition and treatment plan as described except to the extent set forth below. 87-year-old female with a history of dementia, hyperlipidemia, diabetes mellitus , atrial fibrillation. She was hospitalized following an episode of hypotension associated with decreased alertness after receiving clonidine at the nursing facility. Workup since admission has been unremarkable. She has no focal neurologic deficits, head CT and brain MRI and negative, echocardiogram is unremarkable, and carotid Doppler ultrasound is unremarkable. Low suspicion for pneumonia-patient has no chest symptoms, she has been clinically stable Physical examination alert awake and oriented 2. Chest is clear to auscultation bilaterally. S1 and S2 no murmurs gallops or rubs. Abdomen is soft and non-tender. The patient has no pedal edema. Her blood pressure is stable on current medications Labs and imaging reviewed unremarkable. CBC and Chem is at baseline Discharge back to SNF, patient is medically stable, dementia is progressive and work up has been negative Rest of details as in the resident physicians documentation.
--- NOTE | 2017-05-05 08:39 | Physician Discharge Referral ---
ExtendedCare Referral Info Provider in Charge: frandy Provider in Charge after Transfer: PCP Institutional Level of Care: Intermediate - Diagnosis (1) Altered mental status Priority: Primary Status: Resolved (2) Hypotension due to medication Priority: Secondary Status: Resolved (3) Afib Priority: Secondary Status: Acute (4) Pneumonia Priority: Secondary Status: Ruled-out (5) Anemia Priority: Secondary Status: Chronic (6) Pubic ramus fracture Priority: Secondary Status: Chronic - Transfer Medications Prescriptions: Donepezil [Aricept] 5 mg PO HS #30 tablet Home Medications: Alendronate Sodium 70 mg PO SA 10/22/15 [History] Calcitriol [Rocaltrol] 0.25 mg PO DAILY 10/22/15 [History] Ergocalciferol (VITAMIN D2) [Vitamin D2 (50,000 UNIT)] 50,000 unit PO WE [History] Metoprolol [Lopressor] 50 mg PO BID 10/22/15 [History] Montelukast [Singulair] 10 mg PO DAILY 10/22/15 [History] Potassium Chloride [K-Tab ER] 20 meq PO BID 10/22/15 [History] Rivaroxaban [Xarelto] 20 mg PO DAILY 10/22/15 [History] Simvastatin [Zocor] 10 mg PO DAILY 10/22/15 [History] Ipratropium/Albuterol Neb [Duoneb] 3 ml IH Q4HR PRN 05/03/17 [History] MOM Conc [MILK OF MAGNESIA conc] 30 ml PO DAILY PRN 05/03/17 [History] Ondansetron HCl [Zofran] 4 mg PO Q6H PRN 05/03/17 [History] Tramadol HCl [Ultram] 50 mg PO BID PRN 05/03/17 [History] Donepezil [Aricept] 5 mg PO HS #30 tablet 05/05/17 [Rx] Furosemide [Lasix] 20 mg PO DAILY tablet 05/05/17 [Rx] Allergies/Adverse Reactions: 3 Allergy/AdvReac Type Severity Reaction Status Date / Time Penicillins Allergy Hives Verified 06/28/15 14:53 loratadine AdvReac See Verified 05/03/17 12:58 Comments sulfamethoxazole AdvReac See Verified 05/03/17 12:58 [From Bactrim] Comments trimethoprim [From Bactrim] AdvReac See Verified 05/03/17 12:58 Comments - Respiratory Orders Other Smoking Cessation: Smoking cessation has been advised. For more information, call the [place] Tobacco Quit Line at 9-111-NRFL-NOW. - Ancillary Orders May use pressure relief devices daily prn - Advance Directives Code Status: Full Code - Mobility Orders Ambulate (with waker and as per physical theraphy) - Rehabiliation Orders Rehab Potential: Fair Rehab Orders: Evaluation for Physical Therapy, Evaluation for Occupational Therapy - Treatments Skin tear care topically daily PRN per policy - Diet Orders Regular (soft chopped meat) CERTIFICATION: I certify that the transfer of the above named patient to an Extended Care Facility is necessary for the continuing treatment of the diagnosis listed. The above information is true and accurate reflection of patient's current condition. Confidential - Redisclosure prohibited without a patient's written consent.
[2017-05-05] MEDS ORDERED: *HR* Rivaroxaban 10 MG TABLET PO SCH (09:00)
[2017-05-05] MEDS ORDERED: Famotidine 20 MG TABLET PO SCH (09:00)
[2017-05-05] MEDS: Aspirin Enteric Coated 81 MG Tablet PO SCH (10:24)
[2017-05-05] MEDS: Furosemide 20 MG TABLET PO SCH (10:25)
== END 2017-05-05 14:40 | DRG 312 ==
LOC: EMEROO 03:17 → 2ANU 03:17 → SUATTDRO 09:24
PROVIDERS: ADMIT Hospitalist; ATTEND Internal Medicine